=== PATIENT | female | born 1950 | race Caucasian/White ===

== ENCOUNTER 2024-02-21 17:41 | Inpatient (IN) | payer MEDICARE, OTHER ==
[~2024-02-21] VITALS: Ht 154.9 cm; Wt 97.0 kg
[2024-02-21] MEDS ORDERED: Ipratropium/Albuterol SulF 2.5-0.5MG/3 ML Amp INH ONE (17:50)
[2024-02-21 18:06] LABS: BASOPHILS ABSOLUTE AUTO 0.04 K/mm3 (0.00-0.23); BASOPHILS PERCENT AUTO 0 % (0-2); EOSINOPHILS ABSOLUTE AUTO 0.18 K/mm3 (0.00-0.68); EOSINOPHILS PERCENT AUTO 2 % (0-6); Hematocrit 44.1 % (33.0-51.0); Hemoglobin 14.3 g/dL (11.5-16.0); IMMATURE GRAN ABSOLUTE AUTO 0.07 K/mm3 (0.00-0.10); IMMATURE GRAN PERCENT AUTO 1 % (0-1); LYMPHOCYTES ABSOLUTE AUTO 1.75 K/mm3 (0.84-5.20); LYMPHOCYTES PERCENT AUTO 17 % (21-46); MONOCYTES ABSOLUTE AUTO 0.35 K/mm3 (0.16-1.47); MONOCYTES PERCENT AUTO 3 % (4-13); Mean Corpuscular HGB 30.1 pg (26.0-34.0); Mean Corpuscular HGB Conc 32.4 g/dL (31.5-36.5); Mean Corpuscular Volume 93 fL (80-100); Mean Platelet Volume 10.1 fL (9.1-12.4); NEUTROPHILS ABSOLUTE AUTO 8.24 K/mm3 (1.96-9.15); NEUTROPHILS PERCENT AUTO 77 % (41-73); Platelet Count 215 K/mm3 (150-400); RDW Coefficient Variation 15.1 % (11.7-14.2); RDW Standard Deviation 50.8 fL (35.1-46.3); Red Blood Cell Count 4.75 M/mm3 (3.80-5.20); White Blood Cell Count 10.63 K/mm3 (4.00-11.30)
[2024-02-21 18:24] LABS: Albumin, Blood 3.5 g/dL (3.4-5.0); Albumin/Globulin Ratio 0.9 (0.8-1.8); Bilirubin, Total 1.2 mg/dL (0.1-1.0); Bun/Creatinine Ratio 20.7 (12.0-20.0); Calcium, Blood 8.6 mg/dL (8.5-10.1); Creatinine, Blood 1.11 mg/dL (0.40-1.00); Globulin, Blood 3.9 g/dL (2.2-4.0); Total Protein, Blood 7.4 g/dL (6.4-8.2)
[2024-02-21 18:57] LABS: D-Dimer, Quantitative 3.97 mg/L FEU (0.00-0.52)
[2024-02-21] MEDS ORDERED: NS 1,000 ML IV SCH ×2 (19:05→23:35)
[2024-02-21] MEDS ORDERED: DiphenhydrAMINE HCl 50 MG/ML 1ML Vial IV ONE (20:20)
[2024-02-21] MEDS ORDERED: Hydrocortisone Sod Succinate 100 MG Vial IV ONE (20:20)
[2024-02-21] MEDS ORDERED: WIXELA 250-501 EAC1 IH (20:46)
[2024-02-21] MEDS ORDERED: CARVEDILOL6.25 MG PO (20:47)
[2024-02-21] MEDS ORDERED: PROAIR RESPICL90 MCG IH (20:47)
[2024-02-21] MEDS ORDERED: CYCL10 PO (20:47)
[2024-02-21] MEDS ORDERED: Crestor40 MG PO (20:48)
[2024-02-21] MEDS ORDERED: WIXELA 100-501 EAC1 INH (20:48)
[2024-02-21 22:23] LABS: International Normalized Ratio 1.07; Prothrombin Time Results 11.4 Sec (9.7-11.5)
[2024-02-21 22:24] LABS: Anti-Xa UFH, PHA Monitoring <0.10 IU/mL
[2024-02-21] MEDS ORDERED: Dose Adjust by Pharmacy XX STA (22:29)
[2024-02-21] MEDS ORDERED: Heparin Sodium,Porcine/0.5 NS 500 ML IV SCH (22:30)
[2024-02-21] MEDS ORDERED: Heparin Sodium 5000 Units/ML 1ML MDV IV ONE (22:30)
[2024-02-21 23:15] VITALS: BP 165/96
[2024-02-21] MEDS ORDERED: Ondansetron HCl 2 MG / ML 2ML Vial IV PRN (23:35)
[2024-02-22] MEDS ORDERED: Sodium Bicarb 8.4% Inj 75 MEQ in Sodium Chloride 0.45% 1,000 ML IV SCH ×2 (02:50→03:00)
[2024-02-22 03:44] VITALS: BP 135/99
[2024-02-22 05:10] LABS: BASOPHILS ABSOLUTE AUTO 0.01 K/mm3 (0.00-0.23); BASOPHILS PERCENT AUTO 0 % (0-2); EOSINOPHILS PERCENT AUTO 0 % (0-6); Hematocrit 39.6 % (33.0-51.0); Hemoglobin 13.1 g/dL (11.5-16.0); IMMATURE GRAN ABSOLUTE AUTO 0.05 K/mm3 (0.00-0.10); IMMATURE GRAN PERCENT AUTO 1 % (0-1); LYMPHOCYTES ABSOLUTE AUTO 0.97 K/mm3 (0.84-5.20); LYMPHOCYTES PERCENT AUTO 13 % (21-46); MONOCYTES ABSOLUTE AUTO 0.04 K/mm3 (0.16-1.47); MONOCYTES PERCENT AUTO 1 % (4-13); Mean Corpuscular HGB 29.8 pg (26.0-34.0); Mean Corpuscular HGB Conc 33.1 g/dL (31.5-36.5); Mean Corpuscular Volume 90 fL (80-100); Mean Platelet Volume 10.2 fL (9.1-12.4); NEUTROPHILS ABSOLUTE AUTO 6.24 K/mm3 (1.96-9.15); NEUTROPHILS PERCENT AUTO 85 % (41-73); Platelet Count 180 K/mm3 (150-400); RDW Standard Deviation 49.4 fL (35.1-46.3); White Blood Cell Count 7.31 K/mm3 (4.00-11.30)
[2024-02-22 05:38] LABS: Albumin, Blood 3.1 g/dL (3.4-5.0); Albumin/Globulin Ratio 0.9 (0.8-1.8); Bilirubin, Total 1.1 mg/dL (0.1-1.0); Bun/Creatinine Ratio 23.3 (12.0-20.0); Calcium, Blood 8.4 mg/dL (8.5-10.1); Creatinine, Blood 0.94 mg/dL (0.40-1.00); Globulin, Blood 3.5 g/dL (2.2-4.0); Potassium, Blood 4.4 mmol/L (3.5-5.5); Total Protein, Blood 6.6 g/dL (6.4-8.2)
[2024-02-22] MEDS ORDERED: Dose Adjust by Pharmacy XX STA ×2 (05:41→13:31)
--- NOTE | 2024-02-22 05:48 | NUR ---
SHIFT SUMMARY PT A&O X4, ABLE TO MAKE NEEDS KNOWN. VSS, AFEBRILE, SPO2 >90% ON 3L NC, LS WITH MILD WHEEZES IN UPPER LOBES. PT WAS SBA TO HOSPITAL BED FROM ER [facility]. PT REPORTS SOB WITH EXERTION BUT DENIES CP AT THIS TIME. TELE SHOWS ST 100'S-120'S . PT DID HAVE ONE EPISODE OF HR OF 150'S WHILE SLEEPING, HR QUICKLY CAME DOWN WHEN PT AWOKE TO 110'S. HEPARIN GTT AND NS INFUSING PER EMAR. PT UNABLE TO VOID THIS SHIFT, BLADDER SCAN PERFORMED WITH VOLUME OF 495, STRAIGHT CATH DONE, URINALYSIS SENT TO LAB. SHE IS RESTING QUIETLY IN BED, CALL LIGHT WITHIN REACH, BREATHING EVEN AND UNLABORED.
[2024-02-22] MEDS ORDERED: Albuterol HFA200 ACT/6.7 GM INH INH PRN (06:30)
[2024-02-22] MEDS ORDERED: Mometasone/Formoterol MDI 200/5 mcg 13 GM INH SCH (06:30)
[2024-02-22 07:33] VITALS: BP 106/95
[2024-02-22 07:59] LABS: Bicarbonate Venous 20.8 mmol/L (24.0-30.0); PCO2 Venous 30.8 mmHg (38-42); pH Blood Venous 7.41 (7.34-7.37)
[2024-02-22 08:00] LABS: Base Excess Venous -5.1 mmol/L
[2024-02-22] MEDS ORDERED: Carvedilol 6.25 MG Tab PO SCH (09:00)
[2024-02-22 11:36] VITALS: BP 127/77
[2024-02-22] MEDS ORDERED: Acetaminophen 325 MG TABLET PO PRN (13:50)
[2024-02-22 15:38] VITALS: BP 121/75
--- NOTE | 2024-02-22 17:23 | NUR ---
SHIFT SUMMARY; ASSUMED CARE AT 0700.A/A/OX4 DURING SHIFT, PLEASANT WITH CARE. HEPARIN GTT INFUSING, 5L 02 VIA NC. VISIBLY SOB WITH EXERTION, BUT RECOVERS WITHIN MINUTES. SATS 88-94%. SINUS TACH UP TO 120 WITH EXERTION. ENCOURAGED UP TO CHAIR FOR MEALS, DENIED ALL EXCEPT LUNCH TIME MEAL. ECHO COMPLETED TODAY, WILL CONTINUE TO MONITOR AND TREAT UNTIL CHANGE OF SHIFT.
[2024-02-22 18:00] LABS: Source, Urine Clean Catch
[2024-02-22 18:03] LABS: Appearance, Urine Clear (Clear); Bilirubin, Urine Neg (Neg); Blood, Urine Neg (Neg); Color, Urine Yellow (P-Yellow); Glucose Qualitative, Urine Neg (Neg); Ketones, Urine Neg (Neg); Leukocyte Esterase, Urine 1+ (Neg); Nitrite, Urine Pos (Neg); Protein, Urine 2+ (Neg); Urobilinogen, Urine NORM (Normal)
[2024-02-22 18:09] LABS: Bacteria Many /hpf; Calcium Oxalate Crystals Rare /hpf; Red Blood Cells, Urine 0-2 /hpf (0-2); Squamous Epithelial Cells Few /hpf (Few)
[2024-02-22 18:10] LABS: Hyaline Casts 0-2 /lpf (0-2)
[2024-02-22 19:23] VITALS: BP 125/74
[2024-02-22 23:21] VITALS: BP 134/88
[2024-02-23 03:36] VITALS: BP 114/79
[2024-02-23 03:48] LABS: BASOPHILS ABSOLUTE AUTO 0.02 K/mm3 (0.00-0.23); BASOPHILS PERCENT AUTO 0 % (0-2); EOSINOPHILS ABSOLUTE AUTO 0.02 K/mm3 (0.00-0.68); EOSINOPHILS PERCENT AUTO 0 % (0-6); Hematocrit 36.8 % (33.0-51.0); Hemoglobin 11.6 g/dL (11.5-16.0); IMMATURE GRAN ABSOLUTE AUTO 0.08 K/mm3 (0.00-0.10); IMMATURE GRAN PERCENT AUTO 1 % (0-1); LYMPHOCYTES ABSOLUTE AUTO 1.83 K/mm3 (0.84-5.20); LYMPHOCYTES PERCENT AUTO 20 % (21-46); MONOCYTES ABSOLUTE AUTO 0.46 K/mm3 (0.16-1.47); MONOCYTES PERCENT AUTO 5 % (4-13); Mean Corpuscular HGB 29.6 pg (26.0-34.0); Mean Corpuscular HGB Conc 31.5 g/dL (31.5-36.5); Mean Corpuscular Volume 94 fL (80-100); Mean Platelet Volume 10.2 fL (9.1-12.4); NEUTROPHILS ABSOLUTE AUTO 6.88 K/mm3 (1.96-9.15); NEUTROPHILS PERCENT AUTO 74 % (41-73); Platelet Count 181 K/mm3 (150-400); RDW Coefficient Variation 15.4 % (11.7-14.2); RDW Standard Deviation 52.2 fL (35.1-46.3); Red Blood Cell Count 3.92 M/mm3 (3.80-5.20); White Blood Cell Count 9.29 K/mm3 (4.00-11.30)
[2024-02-23 04:08] LABS: Albumin, Blood 2.8 g/dL (3.4-5.0); Albumin/Globulin Ratio 0.8 (0.8-1.8); Bilirubin, Total 0.6 mg/dL (0.1-1.0); Bun/Creatinine Ratio 28.5 (12.0-20.0); Calcium, Blood 8.4 mg/dL (8.5-10.1); Creatinine, Blood 1.3 mg/dL (0.40-1.00); Globulin, Blood 3.3 g/dL (2.2-4.0); Potassium, Blood 4.7 mmol/L (3.5-5.5); Total Protein, Blood 6.1 g/dL (6.4-8.2)
[2024-02-23] MEDS ORDERED: Clarify Drug Order XX ONE (04:15)
--- NOTE | 2024-02-23 05:45 | NUR ---
SHIFT SUMMARY PT A&O X4, ABLE TO MAKE NEEDS KNOWN. VSS, AFEBRILE, SPO2 >90% ON 2-6L NC, LUNGS CTA BILATERALLY. PT REPORTS SOB WITH EXERTION, SHE DENIES CP AT THIS TIME. TELE SHOWS SR/ ST. HEPARIN GTT INFUSING PER EMAR. PT UP TO BSC TO VOID THIS SHIFT. SHE IS NOW RESTING QUIETLY IN BED, CALL LIGHT WITHIN REACH, BREATHING EVEN AND UNLABORED.
[2024-02-23 07:50] VITALS: BP 101/55
[2024-02-23 08:21] VITALS: BP 109/67
[2024-02-23 12:00] VITALS: BP 113/74
[2024-02-23 17:14] VITALS: BP 133/68
--- NOTE | 2024-02-23 17:42 | NUR ---
PATIENT IS ALERT AND ORIENTED AND COOPERATIVE WITH CARE. ON 1L O2 VIA NC WITH AND O2 SATURATION OF 94%. UP TO THE CHAIR FOR MEALS. UP TO THE BSC. VOIDED ONCE THIS SHIFT, DENIED THE NEED TO VOID ANY MORE THAN THAT. FAMILY VISITED THIS AFTERNOON. C/O BACK PAIN. HEPARIN DRIP RUNNING PER EMAR. NO C/O CP OR SOB. WILL CONTINUE TO MONITOR
[2024-02-23 19:47] VITALS: BP 114/84
[2024-02-23 22:46] LABS: B2GLYCOPROTEIN 1, IGG ANTIBODY <10 SGU (<=20); B2GLYCOPROTEIN 1, IGM ANTIBODY <10 SMU (<=20)
[2024-02-24 00:34] VITALS: BP 105/75
[2024-02-24 03:57] LABS: Hematocrit 38.4 % (33.0-51.0); Hemoglobin 12.3 g/dL (11.5-16.0); Mean Platelet Volume 10.5 fL (9.1-12.4); Platelet Count 198 K/mm3 (150-400)
[2024-02-24 04:06] VITALS: BP 113/69
--- NOTE | 2024-02-24 04:28 | NUR ---
SHIFT SUMMARY. SHIFT HAS BEEN UNREMARKABLE. PT AOX4, PLEASANT, COOPERATIVE WITH CARE, CALLS APPROPRIATELY, ABLE TO MAKE NEEDS KNOWN. PT HAS SLEPT SPORADICALLY THROUGHOUT SHIFT. STEADY SBA TO BEDSIDE COMMODE. HEPARIN GTT RUNNING THROUGHOUT SHIFT. VITALS STABLE. TELE ON THROUGHOUT SHIFT, NO ACUTE CHANGES OR EVENTS. MINIMAL PAIN REPORTED EARLY IN SHIFT, WELL MANAGED VIA EMAR. HAS MAINTAINED ADEQUATE SATURATION OVERNIGHT ON 1 L O2 VIA NC. BED LOCKED IN LOWEST POSITION. CALL LIGHT LEFT WITHIN REACH. CONTINUING TO MONITOR.
[2024-02-24] MEDS ORDERED: Clarify Drug Order XX ONE (04:35)
[2024-02-24 06:21] LABS: CARDIOLIPIN ANTIBODY IGG <10 GPL (<=14); CARDIOLIPIN ANTIBODY IGM 15 MPL (<=12)
[2024-02-24 06:32] LABS: HOMOCYSTEINE, TOTAL 13 umol/L (0-15)
[2024-02-24 07:57] VITALS: BP 118/55
[2024-02-24 08:00] LABS: Albumin/Globulin Ratio 0.9 (0.8-1.8); Bilirubin, Total 0.5 mg/dL (0.1-1.0); Bun/Creatinine Ratio 24.3 (12.0-20.0); Calcium, Blood 8.5 mg/dL (8.5-10.1); Creatinine, Blood 1.36 mg/dL (0.40-1.00); Globulin, Blood 3.3 g/dL (2.2-4.0); Magnesium, Blood 2.2 mg/dL (1.6-2.4); Phosphorus, Blood 3.8 mg/dL (2.5-4.9); Potassium, Blood 4.6 mmol/L (3.5-5.5); Total Protein, Blood 6.3 g/dL (6.4-8.2)
[2024-02-24 08:13] LABS: BASOPHILS ABSOLUTE AUTO 0.03 K/mm3 (0.00-0.23); BASOPHILS PERCENT AUTO 0 % (0-2); EOSINOPHILS ABSOLUTE AUTO 0.13 K/mm3 (0.00-0.68); EOSINOPHILS PERCENT AUTO 2 % (0-6); IMMATURE GRAN ABSOLUTE AUTO 0.07 K/mm3 (0.00-0.10); IMMATURE GRAN PERCENT AUTO 1 % (0-1); LYMPHOCYTES ABSOLUTE AUTO 2.41 K/mm3 (0.84-5.20); LYMPHOCYTES PERCENT AUTO 32 % (21-46); MONOCYTES ABSOLUTE AUTO 0.42 K/mm3 (0.16-1.47); MONOCYTES PERCENT AUTO 6 % (4-13); Mean Corpuscular HGB 29.8 pg (26.0-34.0); Mean Corpuscular HGB Conc 31.6 g/dL (31.5-36.5); Mean Corpuscular Volume 94 fL (80-100); NEUTROPHILS ABSOLUTE AUTO 4.43 K/mm3 (1.96-9.15); NEUTROPHILS PERCENT AUTO 59 % (41-73); RDW Coefficient Variation 15.5 % (11.7-14.2); RDW Standard Deviation 53.1 fL (35.1-46.3); Red Blood Cell Count 4.09 M/mm3 (3.80-5.20); White Blood Cell Count 7.49 K/mm3 (4.00-11.30)
[2024-02-24] MEDS ORDERED: Apixaban 5 MG Tab PO SCH (09:00)
[2024-02-24] MEDS ORDERED: Carvedilol 3.125 MG Tab PO SCH (09:00)
--- NOTE | 2024-02-24 13:24 | NUR ---
PT TRANSITIONED TO MEDICAL STATUS NO TELE, PT WAS STARTED ON ELIQUIS, HEP GTT STOPPED AN HOUR AFTER FIRST DOSE OF ELIQUIS. PT REMAINED ON 1L OF 02 AT REST NEEDING UP TO 4L WHEN GETTING UP AND MOVING AROUND, PT REQUESTED TO GET IN THE SHOWER, WAS SHORT OF BREATH UPON GETTING BACK TO THE CHAIR. NO OTHER ISSUES ENCOUTNERED PT DENIES CHEST PAIN/PALPITATIONS, NO NAUSEA/DIZZINESS. PT DOESNT HAVE ANY COMPLAINS URINATING, HAS ADEQUATE AMOUNT OF URINE OUT. VITALS STABLE. PT HAS BEEN CALLING APPROPRIATELY. WILL CONTINUE TO MONITOR
[2024-02-24 15:44] LABS: ANTI-XA QUALITATIVE INTERP Present (Not Present); ANTICOAG MEDICATION NEUTRALIZ Hepzyme (Not Performed); DRVVT 1:1 MIX RATIO 1.32 (<=1.20); DRVVT CONFIRMATION RATIO 0.95 (<=1.20); DRVVT SCREEN RATIO 1.94 (<=1.20); HEXAGONAL PHOSPHOLIPID CONFIRM 16.4 s (<=7.9); NEUTRALIZED DRVVT SCREEN RATIO 1.68 (<=1.20); NEUTRALIZED PTT-LA RATIO 1.45 (<=1.20); PTT-LA RATIO >4.00 (<=1.20); THROMBIN TIME (TT) >150.0 s (<=19.5)
[2024-02-24 16:23] VITALS: BP 120/66
--- NOTE | 2024-02-24 17:25 | NUR ---
PT TRANSFERRED TO 332 REPORT GIVEN TO RUSS GILMORE ALL BELONGIGNS SENT WITH THE PT, ACCOMPANIED VIA WHEELCHAIR
--- NOTE | 2024-02-24 18:01 | NUR ---
SHIFT SUMMARY/TRANSFER NOTE PATIENT TRANSFERRED TO ROOM 332 AT 1700. PATIENT TRANSFERED TO THE COMMODE 1 PERSON ASSIST. DENIES PAIN AT THIS TIME. COMPLAINING OF SOB WITH AMBULATION AND TRANSFERRING. A/OX4, CALL LIGHT WITHIN REACH. PATIENT ON 1LPM OXYGEN VIA NASAL CANNULA. NO CONCERNS AT THIS TIME.
[2024-02-24 18:53] LABS: PROTEIN S AG FREE 137 % (55-123)
[2024-02-24 19:26] VITALS: BP 112/60
[2024-02-24 20:15] LABS: ANTITHROMBIN, ENZYM (ACTIVITY) 103 % (76-128)
[2024-02-24 20:43] LABS: PROTEIN C FUNCTIONAL 157 % (83-168)
[2024-02-24 22:55] LABS: APC RESISTANCE 3.77 (>=2.00); FACTOR V LEIDEN BY PCR Not Done; FACV REF SPECIMEN Not Done
[2024-02-25 01:59] VITALS: BP 137/79
--- NOTE | 2024-02-25 04:54 | NUR ---
SALES UTILITY REPRESENTATIVE SUMMARY PT A/OX4. PLEASANT AND COOPERATIVE. PT C/O LOW BACK PAIN. MED WITH TYLENOL. RESPIRATORY THERAPY AT BEDSIDE FOR BREATHING TX. PT PRESENTING WITH EXPIRATORY WHEEZING T/O. O2 SAT 88-89% ON 1LITER. RT INCREASED O2 TO 3L NASAL CANULA. PT IS ABLE TO MAKE NEEDS KNOWN AND CALLS APPROPRIATELY. CALL LIGHT ACCESSIBLE.
[2024-02-25 07:28] VITALS: BP 134/70
[2024-02-25 08:11] LABS: Anion Gap 10 mmol/L (3-11); Blood Urea Nitrogen 27 mg/dL (8-24); Bun/Creatinine Ratio 23.1 (12.0-20.0); CO2, Blood 25 mmol/L (21-32); Calcium, Blood 8.5 mg/dL (8.5-10.1); Chloride, Blood 110 mmol/L (98-108); Creatinine, Blood 1.17 mg/dL (0.40-1.00); Glomerular Filtration Rate 49 (60-); Glucose, Blood 107 mg/dL (70-99); Phosphorus, Blood 4.2 mg/dL (2.5-4.9); Potassium, Blood 4.4 mmol/L (3.5-5.5); Sodium, Blood 141 mmol/L (136-145)
[2024-02-25 08:21] LABS: Albumin/Globulin Ratio 0.9 (0.8-1.8); Bilirubin, Total 0.7 mg/dL (0.1-1.0); Bun/Creatinine Ratio 23.1 (12.0-20.0); Calcium, Blood 8.5 mg/dL (8.5-10.1); Creatinine, Blood 1.17 mg/dL (0.40-1.00); Globulin, Blood 3.2 g/dL (2.2-4.0); Potassium, Blood 4.4 mmol/L (3.5-5.5); Total Protein, Blood 6.2 g/dL (6.4-8.2)
[2024-02-25] MEDS ORDERED: ACET325 PO (12:29)
[2024-02-25] MEDS ORDERED: BREO ELLIPTA 11 EAC1 (12:29)
[2024-02-25] MEDS ORDERED: ELIQUIS5 M2 PO (12:30)
--- NOTE | 2024-02-25 13:38 | NUR ---
DISCHARGE SUMMARY DISCHARGE PACKET GIVEN AND REVIEWED, VERBALIZED UNDERSTANDING. MEDS FAXED TO [facility]. WAITING FOR [facility] TO DELIVER O2 AND WALKER. AND SON IN ROOM AT THIS TIME.
[2024-02-26 15:16] LABS: PROTHROMBIN F2 G20210A VARIANT Negative; PT PCR SPECIMEN Whole Blood
== END 2024-02-25 14:02 | disposition home health service (06) | DRG 175 ==
LOC: ER 17:41 → EDBD 17:41 → PCU 17:42 → MEDS 02-24 17:06
PROVIDERS: Emergency Medicine; Family Medicine; Internal Medicine; Physician Assistant; ADMIT Internal Medicine
DX: I26.92 Saddle embolus of pulmonary artery without acute cor pulmonale (principal); J96.01 Acute respiratory failure with hypoxia; R65.11 Systemic inflammatory response syndrome (SIRS) of non-infectious origin with acute organ dysfunction; I31.39 Other pericardial effusion (noninflammatory); N17.9 Acute kidney failure, unspecified; E87.21 Acute metabolic acidosis; E87.3 Alkalosis; J44.9 Chronic obstructive pulmonary disease, unspecified; F17.210 Nicotine dependence, cigarettes, uncomplicated; R33.9 Retention of urine, unspecified; I27.20 Pulmonary hypertension, unspecified; R82.71 Bacteriuria; E78.5 Hyperlipidemia, unspecified; Z90.710 Acquired absence of both cervix and uterus; Z90.13 Acquired absence of bilateral breasts and nipples; Z79.51 Long term (current) use of inhaled steroids; Z79.899 Other long term (current) drug therapy; Z88.8 Allergy status to other drugs, medicaments and biological substances; Z91.041 Radiographic dye allergy status
CPT/HCPCS: 36415; 71046; 71260; 76770; 80053; 80069; 81001; 81240; 82803; 83090; 83605; 83735; 83880; 84100; 84145; 84484; 85025; 85300; 85303; 85306; 85307; 85379; 85520; 85525; 85610; 85613; 85670; 85730; 86146; 86147; 87040; 87077; 87086; 87186; 93005; 93010; 93306; 93970; 94640; 94664; 94760; 94761; 94762; 96361; 96365-59; 96375-59; 97110; 97116; 97162; 97530; 99285-25; A9270; G0378; J1200; J1644; J1720; J7030; Q9967

== ENCOUNTER 2024-10-17 05:23 | Inpatient (IN) | payer MEDICARE ==
[2024-10-17] VITALS (29 sets, daily range): BP systolic 103–156; BP diastolic 65–105
[~2024-10-17] VITALS: Ht 160 cm; Wt 93.5 kg
[~2024-10-17 05:23] MED LIST: ACET325 PO; BREO ELLIPTA 11 EAC1 INH; CARVEDILOL6.25 MG PO; CYCL10 PO; Crestor40 MG PO; ELIQUIS5 M2 PO; PROAIR RESPICL90 MCG IH; WIXELA 100-501 EAC1 INH; WIXELA 250-501 EAC1 IH
[2024-10-17 05:40] LABS: BASOPHILS ABSOLUTE AUTO 0.06 K/mm3 (0.00-0.23); BASOPHILS PERCENT AUTO 1 % (0-2); EOSINOPHILS ABSOLUTE AUTO 0.18 K/mm3 (0.00-0.68); EOSINOPHILS PERCENT AUTO 2 % (0-6); Hematocrit 44.5 % (33.0-51.0); Hemoglobin 14.2 g/dL (11.5-16.0); IMMATURE GRAN ABSOLUTE AUTO 0.06 K/mm3 (0.00-0.10); IMMATURE GRAN PERCENT AUTO 1 % (0-1); LYMPHOCYTES ABSOLUTE AUTO 2.97 K/mm3 (0.84-5.20); LYMPHOCYTES PERCENT AUTO 33 % (21-46); MONOCYTES ABSOLUTE AUTO 0.56 K/mm3 (0.16-1.47); MONOCYTES PERCENT AUTO 6 % (4-13); Mean Corpuscular HGB 28.9 pg (26.0-34.0); Mean Corpuscular HGB Conc 31.9 g/dL (31.5-36.5); Mean Corpuscular Volume 91 fL (80-100); Mean Platelet Volume 10.3 fL (9.1-12.4); NEUTROPHILS ABSOLUTE AUTO 5.15 K/mm3 (1.96-9.15); NEUTROPHILS PERCENT AUTO 57 % (41-73); Platelet Count 221 K/mm3 (150-400); RDW Coefficient Variation 15.6 % (11.7-14.2); RDW Standard Deviation 51.8 fL (35.1-46.3); Red Blood Cell Count 4.91 M/mm3 (3.80-5.20); White Blood Cell Count 8.98 K/mm3 (4.00-11.30)
[2024-10-17 05:48] LABS: PCO2 Arterial 31.2 mmHg (35-45); PO2 Arterial 57.4 mmHg (80-100); pH Blood Arterial 7.35 (7.35-7.45)
[2024-10-17 06:01] LABS: Albumin, Blood 3.7 g/dL (3.4-5.0); Bilirubin, Total 0.7 mg/dL (0.1-1.0); Bun/Creatinine Ratio 20.9 (12.0-20.0); Creatinine, Blood 1.82 mg/dL (0.40-1.00); Globulin, Blood 3.8 g/dL (2.2-4.0); Total Protein, Blood 7.5 g/dL (6.4-8.2)
[2024-10-17] MEDS ORDERED: EPINEPHrine HCL 11.25 MG/0.5 ML VIAL ONE (06:24)
[2024-10-17] MEDS ORDERED: Albuterol 2.5 MG/3 ML VIAL ONE (06:24)
[2024-10-17] MEDS ORDERED: Albuterol 2.5 MG/3 ML VIAL INH ONE (06:35)
[2024-10-17] MEDS ORDERED: CefTRIAXone Sodium 2,000 MG in NS 100 ML IV ONE (06:40)
[2024-10-17] MEDS ORDERED: NS 1,000 ML IV SCH (06:40)
[2024-10-17] MEDS ORDERED: Acetaminophen 500 MG Tab PO PRN (07:50)
[2024-10-17] MEDS ORDERED: FLU VACC TS2024-25(6MOS UP)/PF 45 MCG/0.5 ML SYRINGE IM SCH (07:55)
[2024-10-17] MEDS ORDERED: Polyethylene Glycol 3350 17 gm PO PRN (07:55)
[2024-10-17] MEDS ORDERED: MethylPREDNISolone Sod Succ 125 MG Vial IV SCH (08:00)
[2024-10-17] MEDS ORDERED: Aspirin 325 MG Tab PO ONE ×2 (08:00→11:55)
[2024-10-17] MEDS ORDERED: Lactobacil 2-S.Thermo-Bifido 1 1 Cap PO SCH (09:00)
[2024-10-17] MEDS ORDERED: SOAANZ20 M1 PO (10:20)
[2024-10-17] MEDS ORDERED: BACLOFEN5 M1 PO (10:21)
[2024-10-17] MEDS ORDERED: POTCHL20ER PO (10:22)
[2024-10-17] MEDS ORDERED: Baclofen 10 MG Tab PO PRN (10:50)
[2024-10-17] MEDS ORDERED: Mometasone/Formoterol MDI 100/5 mcg 13 GM INH SCH (11:00)
[2024-10-17 12:04] LABS: Magnesium, Blood 2.3 mg/dL (1.6-2.4); Phosphorus, Blood 4.3 mg/dL (2.5-4.9)
[2024-10-17] MEDS ORDERED: Aspirin 81 MG Chew PO ONE (12:05)
[2024-10-17] MEDS ORDERED: LORazepam 0.5 MG Tab PO PRN (12:25)
--- NOTE | 2024-10-17 13:19 | NUR ---
Given ativan p.o. for anxiety.
--- NOTE | 2024-10-17 13:34 | NUR ---
UPDATE & MD NOTIFED: PATIENT CAME TO UNIT AND WAS SETTLED IN WITH FAMILY AT BEDSIDE. MD WAS NOTIFIED FOR THE ONE TIME ASPIRIN DOSE THAT WAS NOT GIVEN IN THE EMERGENCY ROOM FOR A ONE TIME ORDER TO BE GIVEN. MD ORDERED ATIVAN FOR ANXIETY, WAS NOTIFED OF THE CRITCAL TROPONIN & LACTIC THAT CAME BACK. MD AWARE AND STATED HE WILL TREND TROPONIN. MD ALSO NOTIFIED THAT PATIENT STATED "I TAKE 100 OF BENADRYL EVERY DAY 50 IN THE MORNING & 50 AT NIGHT". MD AWARE AND NO ORDERS TO BE ADDED AT THIS TIME. PATIENT WAS PLACED ON THE BIPAP DUE TO SHOUTING OUT "THAT SHE COUDLN'T BREATH". IS CURRENTLY ON THE BIPAP AND TOLERATING IT WELL. HAS CALL LIGHT WITHIN REACH & BED IN LOWEST POSITION.
--- NOTE | 2024-10-17 15:49 | NUR ---
Pt. is awake and welcomes my visit. Pt. is unsettled about her breathing and verbalized "I'm sorry I have Heeby Juan José's." Facilitated a short life review and considered matters of wong and family. Pt. displayed increased distress so this electric screw driver operator cut the visit short. Prayed with the Pt. Pt. verbalized gratitude for the spiritual care visit and welcomed this electric screw driver operator to return.
[2024-10-17] MEDS ORDERED: Rocuronium Bromide 10 MG/ML 5ML Injection IV ONE (16:11)
[2024-10-17] MEDS ORDERED: Etomidate 2MG / ML 10ML Vial IV ONE (16:31)
--- NOTE | 2024-10-17 17:15 | NUR ---
TRANSFER NOTE: PRINCIPLE INDUSTRIAL HYGIENIST HAD LEFT THE ROOM AND THIS RN WAS SITTING OUTSIDE THE ROOM AND PRINCIPLE INDUSTRIAL HYGIENIST LEFT THE ROOM DUE TO HIM STATING "I'M GONNA GO AND LET YORU HEART CALM DOWN". ONCE HE HAD LEFT THIS RN ENTERED THE ROOM PATIENT WAS ALSON STATING "HELP ME, I FEEL LIKE I CAN'T BREAHT" THIS RN INCREASED PATIENTS OXYGEN ON NASAL CANNULA TO 10LITERS. PATIENT CONTINUED TO STATE THAT "SHE COULDN'T BREATH", THIS RN PLACED THE PATIENT ON BIPAP AND HYPEROXYGENATED PATIENT. PATIENT WAS RAPID BREATHING WITH SHALLOW BREATHS AT 26 A MINUTE. THIS RN CALLED CHARGE TO COME INTO ROOM AND PATIENT WAS SATTING AT 79% ON BIPAP AT 100 FIO2. PATIENT CONTINUED TO DEORIATE, RAPID BREATHING, BLUE LIPS & MOTTLING. A RAPID RESPONSE WAS CALLED AND MORE HANDS CAME INTO THE ROOM. MD UMANA & PATRICA AT BEDSIDE. PATIENT CONTINUED TO BE ON BIPAP WHILE BEING GIVEN ATIVAN & MORPHINE TO CALM WORK OF BREATHING. PATIENT CONTINUED TO SAT IN THE 70-80'S AND CONTINUE TO HAVE RAPID, SHALLOW BREATHING, BLUISH TING & MOTTLING. VBG WAS DRAWN, LABS REVIEWED, & DECISION TO INTUBATE WAS DRAWN BY JAILYN. PATIENT WAS INTUBATED AT BEDSIDE WITH MD UMANA PREFORMING INTUBATION. PATIENT WAS THEN TRANSFFERED TO ICU 11 AND BEDSIDE SHIFT REPORT WAS GIVEN TO RECEIVING RN. FAMILY WAS NOTIFIED DURING THE RAPID RESPONSE.
[2024-10-17] MEDS ORDERED: LORazepam 2 MG/ML 1ML Injection ONE (17:42)
[2024-10-17] MEDS ORDERED: LORazepam 2 MG/ML 1ML Injection IV STA (17:48)
[2024-10-17] MEDS ORDERED: Morphine Sulfate 4 MG/1 ML Injection ONE (17:48)
[2024-10-17] MEDS ORDERED: Morphine Sulfate 4 MG/1 ML Injection IV STA (17:54)
[2024-10-17] MEDS ORDERED: NS 1,000 ML IV ONE ×2 (18:01→18:10)
--- NOTE | 2024-10-17 18:01 | NUR ---
MD CONTACTED AND NOTIFIED OF RAPID RESPONSE. PT DAUGHTER CONTACTED AND NOTIFIED OF RAPID RESPONSE.
[2024-10-17] MEDS ORDERED: Etomidate 2MG / ML 10ML Vial IV STA (18:06)
[2024-10-17 18:10] LABS: Bicarbonate Venous 12.9 mmol/L (24.0-30.0); PCO2 Venous 49.9 mmHg (38-42)
[2024-10-17 18:12] LABS: pH Blood Venous 7.09 (7.34-7.37)
[2024-10-17] MEDS ORDERED: Ipratropium/Albuterol SulF 2.5-0.5MG/3 ML Amp INH PRN ×2 (18:20→18:45)
[2024-10-17] MEDS ORDERED: propofoL 100 ML IV SCH (18:25)
--- NOTE | 2024-10-17 18:39 | NUR ---
"Spiritual Care Support | Rapid Response A Rapid Response was called less than 10 minutes after this expander's previous visit. Assistted staff with communication. Collaborated with staff as family support is given. Pt. is moved to ICU. Family are being supported by Palliative Care Nurse Deanne."
[2024-10-17] MEDS ORDERED: Acetaminophen 650 MG Supp PR PRN (18:45)
--- NOTE | 2024-10-17 18:50 | NUR ---
PT TRANSFERED FROM PCU 7 TO ICU 11 AFTER RAPID RESPONSE. PT WAS INTUBATED WHILE IN PCU. VENT SETTINGS AC 18, 350, 5, 70%. OG PLACED BEFORE CXR, AWAITING READ. PROPOFOL STARTED. PT IS NOT RESPONDING TO STIMULI YET, PT DID ETOMIDATE AND ROCURONIUM BEFORE INTUBATION. FAMILY AT BEDSIDE, PALLIATIVE CARE RN WITH THEM AND ANSWERING QUESTIONS. WILL REPORT TO ONCOMING RN.
--- NOTE | 2024-10-17 18:56 | NUR ---
INITIAL PALLIATIVE CARE VISIT: RAPID RESPONSE CALLED ON PT. ATTENDED RAPID RESPONSE AND PROVIDED STANDBY ASSIST. WHEN FAMILY ARRIVED PROVIDED MORAL/EMOTIONAL SUPPORT AND EDUCATION NEEDED. DR. UMANA EDUCATED FAMILY ON PT BEING PLACED ON VENTILATOR. WAITED WITH FAMILY WHILE PT GOT TRANSFERRED TO ICU 11 AND ONCE READY FAMILY TAKEN TO PT ROOM. PT APPEARED PEACEFUL ON ARRIVAL TO ROOM AND ON VENTILATOR. DISCUSSED WHAT TO EXPECT WITH THE FAMILY. DISCUSSED WITH FAMILY IF THEY HAD EVER HAD A CONVERSATION TOGETHER ABOUT WHAT THEY WOULD WANT IF THEY NEEDED LIFE SUPPORT. SPOUSE STATED THEY HAD NEVER TALKED ABOUT THOSE THINGS. DISCUSSED CURRENT CODE STATUS. INFORMED FAMILY PT DID NOT REQUIRE ANY CPR BECAUSE THEY WERE ABLE TO INTUBATE PRIOR TO HER HEART STOPPING. REQUESTED THEY CONSIDER WHAT THERE MOM WOULD WANT IF HER HEART DOES STOP. PER SPOUSE, HE WANTS HIS TO HAVE CPR IF NEEDED. DISCUSSED RISKS OF CPR AND FAMILY VU. ADVISED FAMILY TO TAKE PT PURSE HOME FOR NOW. BELONGINGS WITH DAUGHTER. UPDATED PRIMARY RN ON FAMILY WISHES FOR CPR IF NEEDED.
--- NOTE | 2024-10-17 19:17 | NUR ---
ASSESSMENT/ASSUMED CARE PT INTUBATED AND ON [facility] VENT. FAMILY AT BEDSIDE. BILAT WRIST RESTRAINT ON. LUNGS CLEAR BUT DECREASED IN THE BASES. VENT SETTINGS AC/VC 18/350/5/70%. ORAL CARE DONE. HEART RATE TACHY. BP STABLE. 1+ EDEMA TO BILAT LOWER EXT. BILAT FEET RED. BT+ HYPOACTIVE. OG CLAMPED. ABD SOFT AND NONTENDER. PT PULLS AWAY TO PAINFUL STIMULI. NOT FOLLOWING INSTRUCTIONS. WILL PLACE MCKEON CATH. IV 20G LEFT FOREARM WITH PROPOFOL AT 20 MCQ/KG/MIN. SITE CLEAR. IV 20G TO RIGHT WRIST WITH NS AT 10 ML/HR.
[2024-10-17 19:18] LABS: International Normalized Ratio 1.32; Prothrombin Time Results 13.8 Sec (9.7-11.5)
--- NOTE | 2024-10-17 19:30 | NUR ---
MCKEON CATH PLACED A 16 FR MCKEON TEMP CATH. CLOUDY YELLOW URINE NOTED. ANSWERED QUESTIONS FROM FAMILY
[2024-10-17 19:52] LABS: Albumin, Blood 3.1 g/dL (3.4-5.0); Anion Gap 13 mmol/L (3-11); Blood Urea Nitrogen 34 mg/dL (8-24); Bun/Creatinine Ratio 22.5 (12.0-20.0); CO2, Blood 19 mmol/L (21-32); Calcium, Blood 8.3 mg/dL (8.5-10.1); Chloride, Blood 109 mmol/L (98-108); Creatinine, Blood 1.51 mg/dL (0.40-1.00); Glomerular Filtration Rate 36 (60-); Glucose, Blood 240 mg/dL (70-99); Phosphorus, Blood 5.5 mg/dL (2.5-4.9); Potassium, Blood 4.4 mmol/L (3.5-5.5); Sodium, Blood 137 mmol/L (136-145)
[2024-10-17] MEDS ORDERED: Heparin Sodium,Porcine/0.5 NS 500 ML IV SCH (19:55)
[2024-10-17] MEDS ORDERED: Apixaban 5 MG Tab PO SCH (21:00)
[2024-10-17] MEDS ORDERED: Docusate Sodium/Senna 1 Tab PO SCH (21:00)
[2024-10-18] VITALS (62 sets, daily range): BP systolic 91–152; BP diastolic 64–83
[2024-10-18] MEDS ORDERED: Hydrogen Peroxide 1.5 % Solution MT SCH
[2024-10-18 02:18] LABS: Base Excess Venous -6.7 mmol/L; Bicarbonate Venous 19.8 mmol/L (24.0-30.0); PCO2 Venous 30.7 mmHg (38-42); pH Blood Venous 7.39 (7.34-7.37)
[2024-10-18 02:18] LABS: Hematocrit 39.9 % (33.0-51.0); Hemoglobin 12.3 g/dL (11.5-16.0); Mean Corpuscular HGB 28.8 pg (26.0-34.0); Mean Corpuscular HGB Conc 30.8 g/dL (31.5-36.5); Mean Corpuscular Volume 93 fL (80-100); Mean Platelet Volume 10.4 fL (9.1-12.4); Platelet Count 161 K/mm3 (150-400); RDW Coefficient Variation 15.6 % (11.7-14.2); RDW Standard Deviation 53.1 fL (35.1-46.3); Red Blood Cell Count 4.27 M/mm3 (3.80-5.20); White Blood Cell Count 7.08 K/mm3 (4.00-11.30)
[2024-10-18] MEDS ORDERED: Dose Adjust by Pharmacy XX STA ×2 (03:04→11:55)
[2024-10-18 04:29] LABS: Anion Gap 13 mmol/L (3-11); Blood Urea Nitrogen 34 mg/dL (8-24); Bun/Creatinine Ratio 23.3 (12.0-20.0); CO2, Blood 20 mmol/L (21-32); Calcium, Blood 8.5 mg/dL (8.5-10.1); Chloride, Blood 110 mmol/L (98-108); Creatinine, Blood 1.46 mg/dL (0.40-1.00); Glomerular Filtration Rate 38 (60-); Glucose, Blood 168 mg/dL (70-99); Magnesium, Blood 2.2 mg/dL (1.6-2.4); Phosphorus, Blood 4.5 mg/dL (2.5-4.9); Potassium, Blood 4.7 mmol/L (3.5-5.5); Sodium, Blood 138 mmol/L (136-145)
--- NOTE | 2024-10-18 06:06 | NUR ---
SHIFT SUMMARY PT CONT INTUBATED AND ON [facility] VENT. VENT SETTINGS AC/VC 18/350/5/60%. LUNGS REMAIN CLEAR BUT DECREASED IN THE BASES. SUCTIONED COUPIOUS AMT THICK HASTINGS SPUTUM VIA ET TUBE. HEART RATE DOWN FROM 130'S TO 90'S. BP STABLE. TRACE TO 1+ PEDAL EDEMA. BT+ HYPOACTIVE. OG CLAMPED. MCKEON CATH PLACED. CLOUDY YELLOW URINE DRAINING. PROPOFOL CURRENTLY AT 25 MCQ/KG/MIN. HEPARIN STOPPED FOR AN HOUR AND RESTARTED AT 0400 AT THE DECREASED RATE OF 15 UNITS/KG/HR. BILAT SOFT WRIST RESTRAINTS ON. PT TURNED Q2HRS. TEMP DOWN FROM 99.2 TO 97.1. PT NOT FOLLOWING INSTRUCTIONS. REPORT TO ON COMING NURSE. CONT TO MONITOR
[2024-10-18] MEDS ORDERED: Cetylpyridinium Chloride 1 EA MISC MT SCH (08:00)
[2024-10-18] MEDS ORDERED: Torsemide 20 MG TAB PO SCH (09:00)
[2024-10-18] MEDS ORDERED: CefTRIAXone Sodium 1,000 MG in NS 100 ML IV SCH (09:00)
[2024-10-18] MEDS ORDERED: Potassium Chloride 20 MEQ TabCR PO SCH (09:00)
[2024-10-18] MEDS ORDERED: Furosemide 10 MG/ML 4ML Vial IV SCH (11:00)
[2024-10-18 12:46] LABS: Adenovirus Not Detected (NOT DETECT); Bordetella pertussis Not Detected (NOT DETECT); Chlamydophila pneumoniae Not Detected (NOT DETECT); Coronavirus 229E Not Detected (NOT DETECT); Coronavirus HKU1 Not Detected (NOT DETECT); Coronavirus NL63 Not Detected (NOT DETECT); Coronavirus OC43 Not Detected (NOT DETECT); Human Metapneumovirus Not Detected (NOT DETECT); Human Rhinovirus/Enterovirus Not Detected (NOT DETECT); Influenza A/2009-H1 Not Detected (NOT DETECT); Influenza A/H1 Not Detected (NOT DETECT); Influenza A/H3 Not Detected (NOT DETECT); Influenza B Not Detected (NOT DETECT); Mycoplasma pneumoniae Not Detected (NOT DETECT); Parainfluenza Virus 1 Not Detected (NOT DETECT); Parainfluenza Virus 2 Not Detected (NOT DETECT); Parainfluenza Virus 3 Not Detected (NOT DETECT); Parainfluenza Virus 4 Not Detected (NOT DETECT); Respiratory Syncytial Virus Not Detected (NOT DETECT); SARS-Cov-2 (COVID-19), BioFire Not Detected (NOT DETECT)
[2024-10-18] MEDS ORDERED: Protein Supplement 30 ML UD PT SCH (14:00)
--- NOTE | 2024-10-18 18:15 | NUR ---
SUMMARY PT INTUBATED AND SEDATED WITH PROPOFOL. WHEN SEDATION IS DOWN PT WILL OPEN EYE'S TO VOICE, INSURANCE AGENT HANDS, MOVES FEET, AND NODS HEAD. NO SBT TODAY PER DR. SLOAN. STARTED ON TUBE FEED AND TOLERATING WELL. LASIX GIVEN AND RESPONDING WELL. FAMILY AT BEDSIDE AND UPDATED BY DR. SLOAN. NO ACUTE CHANGES THIS SHIFT.
[2024-10-18] MEDS ORDERED: Heparin Sodium 5000 Units/ML 1ML MDV IV ONE (20:00)
[2024-10-19] VITALS (24 sets, daily range): BP systolic 72–144; BP diastolic 49–112
[2024-10-19] MEDS ORDERED: Miconazole Nitrate 2% 85 GM PWD TOP PRN (01:45)
[2024-10-19 02:18] LABS: BASOPHILS ABSOLUTE AUTO 0.01 K/mm3 (0.00-0.23); BASOPHILS PERCENT AUTO 0 % (0-2); EOSINOPHILS ABSOLUTE AUTO 0.01 K/mm3 (0.00-0.68); EOSINOPHILS PERCENT AUTO 0 % (0-6); Hematocrit 38.1 % (33.0-51.0); Hemoglobin 12.7 g/dL (11.5-16.0); IMMATURE GRAN ABSOLUTE AUTO 0.07 K/mm3 (0.00-0.10); IMMATURE GRAN PERCENT AUTO 1 % (0-1); LYMPHOCYTES ABSOLUTE AUTO 0.83 K/mm3 (0.84-5.20); LYMPHOCYTES PERCENT AUTO 7 % (21-46); MONOCYTES ABSOLUTE AUTO 0.55 K/mm3 (0.16-1.47); MONOCYTES PERCENT AUTO 5 % (4-13); Mean Corpuscular HGB 29.3 pg (26.0-34.0); Mean Corpuscular HGB Conc 33.3 g/dL (31.5-36.5); Mean Platelet Volume 10.9 fL (9.1-12.4); NEUTROPHILS ABSOLUTE AUTO 10.15 K/mm3 (1.96-9.15); NEUTROPHILS PERCENT AUTO 87 % (41-73); NRBC ABSOLUTE 0.02 K/mm3 (0.00-0.02); NRBC Auto 0.2 /100 WBC (0.0-0.2); Platelet Count 192 K/mm3 (150-400); RDW Coefficient Variation 15.3 % (11.7-14.2); RDW Standard Deviation 48.9 fL (35.1-46.3); Red Blood Cell Count 4.33 M/mm3 (3.80-5.20); White Blood Cell Count 11.62 K/mm3 (4.00-11.30)
[2024-10-19 02:22] LABS: Mean Corpuscular Volume 88 fL (80-100)
[2024-10-19 02:47] LABS: Bun/Creatinine Ratio 30.8 (12.0-20.0); Calcium, Blood 8.6 mg/dL (8.5-10.1); Creatinine, Blood 1.46 mg/dL (0.40-1.00); Magnesium, Blood 2.3 mg/dL (1.6-2.4); Phosphorus, Blood 4.7 mg/dL (2.5-4.9); Potassium, Blood 3.3 mmol/L (3.5-5.5)
[2024-10-19] MEDS ORDERED: Potassium Chloride 40 MEQ in NS 250 ML IV ONE (04:00)
[2024-10-19] MEDS ORDERED: Dose Adjust by Pharmacy XX STA ×2 (05:29→20:13)
--- NOTE | 2024-10-19 05:36 | NUR ---
NOC SHIFT SUMMARY NO ACUTE EVENTS OVERNIGHT. PT SEDATED W/ PROPOFOL RUNNING AT 30MCG/KG/MIN, HEPARIN INFUSION IS CURRENTLY PAUSED FOR 1 HR AND TO BE RESTARTED AT 12UNITS/KG/HR. NS TKO W/ POTASSIUM ALSO INFUSING. VENT SETTINGS UPDATE BY RT TO HIGHWAY CONSTRUCTION INSPECTOR- SEE RT NOTES FOR FURTHER DETAILS. LUNGS CLEAR/DIM T/O. MINIMAL SECRETIONS VIA ETT. PT ON CONTINOUS RACING BOARD MARKER, SINUS RATE OF 90S OBSERVED. BP STABLE W/ MAPS>65. PT AFEBRILE. GOOD OUTPUT VIA TEMP PROBE MCKEON. NO BM THIS SHIFT. TF RUNNING AT GOAL RATE OF 30ML/HR. BED BATH GIVEN DURING SHIFT. PT TURNED Q2 HOURS. PT REMAINS IN BILAT UPPER WRIST RESTRAINTS. PLAN OF CARE ONGOING.
[2024-10-19] MEDS ORDERED: Furosemide 10 MG/ML 4ML Vial IV ONE (09:00)
[2024-10-19] MEDS ORDERED: MethylPREDNISolone Sod Succ 125 MG Vial IV SCH (09:00)
[2024-10-19] MEDS ORDERED: Pantoprazole Sodium 40 MG Injection IV SCH (09:00)
[2024-10-19] MEDS ORDERED: dexmedeTOMIDine 100 ML IV SCH (09:50)
[2024-10-19] MEDS ORDERED: Potassium Chloride 20 MEQ/15 ML UDC PT ONE (11:00)
[2024-10-19] MEDS ORDERED: Albumin (Human) 25gm/100ml 100 ML IV ONE (13:05)
[2024-10-19 13:16] LABS: Base Excess Venous -2.7 mmol/L; Bicarbonate Venous 21.5 mmol/L (24.0-30.0); PCO2 Venous 40.3 mmHg (38-42); pH Blood Venous 7.36 (7.34-7.37)
[2024-10-19] MEDS ORDERED: Clarify Drug Order XX ONE (13:25)
--- NOTE | 2024-10-19 14:02 | NUR ---
PT WAS ON SBT FOR A COUPLE HOURS WHEN ETCO2 STARTED TO DROP. CHANGED TUBING AND MONITOR OUT. BP ALSO STARTED TO DROP. ALL SEDATION TURNED OFF AND DR. SLOAN TO BEDSIDE. ALBUMIN GIVEN. EXTREMITIES PINK AND WARM, NO MOTTLING NOTED. PT WAS ABLE TO WAKE UP AND WAS ABLE TO FOLLOW COMMANDS AND NOD HEAD. RESP RATE WAS INITIALLY HIGH IN THE 30'S BUT PT WAS ABLE TO CALM BACK DOWN AND RESP RATE IN THE 20'S. VBG DONE. DECISION WAS MADE TO EXTUBATE BY DR. SLOAN. EXTUBATED TO 2L NC AT 1330. FAMILY AT BEDSIDE UPDATED. PT IS RESTING NOW, DOES NOT APPEAR TO BE IN DISTRESS.
[2024-10-19] MEDS ORDERED: Furosemide 10 MG/ML 4ML Vial IV SCH ×2 (15:00)
[2024-10-19] MEDS ORDERED: OLANZapine 10 MG Vial IM ONE (15:35)
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
--- NOTE | 2024-10-19 18:12 | NUR ---
SUMMARY PT EXTUBATED AT 1330 TO 2L NC. DOING WELL RESPIRATORY VILLATORO. PT IS A/O TO PERSON AND FAMILY. GETS ANXIOUS AT TIMES YELLING OUT "I DON'T WANT TO ". NEEDS FREQUENT REASSURANCE. ONE DOSE OF ZYPREXA GIVEN IM. FAMILY AT BEDSIDE FOR REASSURANCE. BP HAS IMPROVED SINCE BEING EXTUBATED AND NOT ON SEDATIVES. SEE PREVIOUS NOTE.
[2024-10-19] MEDS ORDERED: OLANZapine 10 MG Vial IM PRN (19:20)
[2024-10-20] VITALS (15 sets, daily range): BP systolic 112–154; BP diastolic 66–109
[2024-10-20 03:18] LABS: Hematocrit 37.8 % (33.0-51.0); Hemoglobin 12.4 g/dL (11.5-16.0); Mean Corpuscular HGB 28.9 pg (26.0-34.0); Mean Corpuscular HGB Conc 32.8 g/dL (31.5-36.5); Mean Corpuscular Volume 88 fL (80-100); Mean Platelet Volume 10.7 fL (9.1-12.4); Platelet Count 163 K/mm3 (150-400); RDW Coefficient Variation 15.7 % (11.7-14.2); RDW Standard Deviation 49.9 fL (35.1-46.3); Red Blood Cell Count 4.29 M/mm3 (3.80-5.20); White Blood Cell Count 10.99 K/mm3 (4.00-11.30)
[2024-10-20 03:34] LABS: Bun/Creatinine Ratio 39.2 (12.0-20.0); Calcium, Blood 8.5 mg/dL (8.5-10.1); Creatinine, Blood 1.43 mg/dL (0.40-1.00); Magnesium, Blood 2.3 mg/dL (1.6-2.4); Phosphorus, Blood 4.1 mg/dL (2.5-4.9); Potassium, Blood 4.1 mmol/L (3.5-5.5)
[2024-10-20] MEDS ORDERED: Dose Adjust by Pharmacy XX STA (03:46)
--- NOTE | 2024-10-20 05:28 | NUR ---
NOC SHIFT SUMMARY NO ACUTE EVENTS OVERNIGHT. PT AOX3. UNSURE OF MONTH. COOPERATIVE W/ CARE. PT HAVING CONVERSATIONS W/ HERSELF. HEPARIN INFUSING AT 14 UNITS/KG/HR. PT LUNGS CLEAR. ON 2L VIA NC, MAINTAINING GOOD SATURATIONS. SINUS TACH RATE OF 100S ON MONITOR, BP STABLE. TEMP PROBE MCKEON IN PLACE AND DRAINING TO GRAVITY. PT AFEBRILE. NO BM THIS SHIFT. NO NEW SKIN ISSUES OBSERVED. PT TURNED Q2 HOURS. CALL LIGHT W/ IN REACH. PLAN OF CARE ONGOING.
--- NOTE | 2024-10-20 08:47 | NUR ---
ASSUMED CARE AT 0700 PT LAYING IN BED AWAKE AND FIXATED ON A SPOT ON THE CELING. SHE IS A/O X3 (PERSON/DATE/FOLLOWING DIRECTIONS) BUT NOT PLACE. SPO2 >98% ON 3L NC. AFEBRILE. HR 100'S. BP STABLE. CURRENTLY NPO. MCKEON IN PLACE AND DRAINING TO GRAVITY. HEPARIN INFUSING AT 14UNITS/KG/HR. POWERGLIDE TO LUE PATENT WITH DRESSING C/D/I. SEE SHIFT ASSESSMENT FOR FULL ASSESSMENT.
[2024-10-20] MEDS ORDERED: Apixaban 5 MG Tab PO SCH (12:06)
[2024-10-20] MEDS ORDERED: Mometasone/Formoterol MDI 200/5 mcg 13 GM INH SCH (12:10)
--- NOTE | 2024-10-20 14:35 | NUR ---
TRANSFER PT [facility].
--- NOTE | 2024-10-20 17:51 | NUR ---
PT ARRIVED FROM ICU PT ABLE TO STAND AND TRANSFER 3 PA VIA WALKER AND GAIT BELT, GAIT UNSTEADY. PT ALERT AND SLOW TO RESPOND TO QUESTIONS. VITALS HRR ST 100'S, SBP 150'S, SATS ABOVE 95% ON 3L OF O2, AFEBRILE. FAMILY AT THE BEDSIDE. PT DENIES ANY PAIN/DISCOMFORT. PT KEPT NPO AT THIS TIME. SWABS AT THE BEDSIDE. AWAITING FOR SWALLOW EVAL. PT HAS BEEN PLEASANT AND COOPERATIVE. CALL LIGHTS IN REACH WILL REPORT TO ONCOMING SHIFT
--- NOTE | 2024-10-20 19:30 | NUR ---
ASSUMPTION OF CARE ASSUMED PT'S CARE AT 1900,BEDSIDE REPORT COMPLETED WITH DAYSMTFT NURSE.PT ON 3L OXYGEN VIA NC,OXYGEN SATURATION >92%.PT DENIES PAIN,DENIES NEEDS.PLAN OF CARE REVIEWED.CALL LIGHT AND PT'S IEMS WITHIN REACH.WILL CONTINUE TO MONITOR.
[2024-10-20] MEDS ORDERED: PredniSONE 20 MG Tab PO SCH (21:00)
[2024-10-21] VITALS (7 sets, daily range): BP systolic 146–165; BP diastolic 84–102
[2024-10-21 03:33] LABS: BASOPHILS ABSOLUTE AUTO 0.02 K/mm3 (0.00-0.23); BASOPHILS PERCENT AUTO 0 % (0-2); EOSINOPHILS PERCENT AUTO 0 % (0-6); Hematocrit 39.8 % (33.0-51.0); IMMATURE GRAN ABSOLUTE AUTO 0.07 K/mm3 (0.00-0.10); IMMATURE GRAN PERCENT AUTO 1 % (0-1); LYMPHOCYTES ABSOLUTE AUTO 0.72 K/mm3 (0.84-5.20); LYMPHOCYTES PERCENT AUTO 9 % (21-46); MONOCYTES ABSOLUTE AUTO 0.32 K/mm3 (0.16-1.47); MONOCYTES PERCENT AUTO 4 % (4-13); Mean Corpuscular HGB 28.8 pg (26.0-34.0); Mean Corpuscular HGB Conc 32.7 g/dL (31.5-36.5); Mean Corpuscular Volume 88 fL (80-100); Mean Platelet Volume 10.6 fL (9.1-12.4); NEUTROPHILS PERCENT AUTO 86 % (41-73); NRBC ABSOLUTE 0.02 K/mm3 (0.00-0.02); NRBC Auto 0.3 /100 WBC (0.0-0.2); Platelet Count 177 K/mm3 (150-400); RDW Coefficient Variation 15.7 % (11.7-14.2); Red Blood Cell Count 4.51 M/mm3 (3.80-5.20); White Blood Cell Count 7.93 K/mm3 (4.00-11.30)
[2024-10-21 03:57] LABS: Calcium, Blood 9.3 mg/dL (8.5-10.1); Creatinine, Blood 1.31 mg/dL (0.40-1.00); Magnesium, Blood 2.7 mg/dL (1.6-2.4); Phosphorus, Blood 4.3 mg/dL (2.5-4.9); Potassium, Blood 4.4 mmol/L (3.5-5.5)
[2024-10-21 03:58] LABS: Base Excess Venous 1.8 mmol/L; Bicarbonate Venous 25.4 mmol/L (24.0-30.0); PCO2 Venous 42.8 mmHg (38-42)
--- NOTE | 2024-10-21 06:18 | NUR ---
PT AWAKE MOST OF THE NIGHT,MOSTLY STARING AT THE CEILING.PT REPORTED THAT SHE SEES DIAMONDS IN THE CEILING.PT A&O X3.SBP 126-165.PT HAD 12 BEAT RUN OF SVTS,PT ASYMPTOMATIC. NOTIFIED OF THE ELEVATED BPS AND THE SVTS.NO ORDERS GIVEN.PT BLADDER SCANNED FOR NO URINE OUTPUT,569ML IN BLADDER.STRAIGHT CATHED 700ML OBTAINED.PT DENIES PAIN,DENIES NEEDS AT THIS TIME.CALL LIGHT AND PT'S ITEMS WITHIN REACH.WILL GIVE REPORT TO DAYSHIFT NURSE FOR CONTINUITY OF CARE.
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
--- NOTE | 2024-10-21 12:46 | NUR ---
UPDATE STATUS CHANGED TO MEDICAL WITH TELEMETRY. BED ASSIGNMENT PROVIDED AND REPORT GIVEN TO RADHA RN TO ASSUME CARE. FAMILY AT BEDSIDE NOTIFIED AND PT TO BE PACKED UP AND TRANSFERRED TO NEW ROOM WITH ALL BELONGINGS
--- NOTE | 2024-10-21 14:22 | NUR ---
1300- PT TO [facility] FLOOR IN STABLE CONDITION ON 3L OXYGEN AFTER RECEIVING REPORT FROM LEDY WILLOW ANALYST.
--- NOTE | 2024-10-21 18:29 | NUR ---
SUMMARY- AAOX2-3. X2 ASSIST TO BSC. PT URINATED ONLY 10ML ON BSC, SO PT WAS STRAIGHT CATHED AND 400 ML WAS DRAINED. PT ON 3L THIS SHIFT. PT DENIES PAIN. NO OTHER ACUTE EVENTS NOTED.
[2024-10-22 04:21] VITALS: BP 154/96
[2024-10-22 07:47] VITALS: BP 137/84
[2024-10-22] MEDS ORDERED: PredniSONE 20 MG Tab PO SCH (09:00)
[2024-10-22] MEDS ORDERED: NS 250 ML IV PRN (09:40)
[2024-10-22] MEDS ORDERED: Acetaminophen 325 MG TABLET PO PRN (11:35)
[2024-10-22] MEDS ORDERED: DOCUZEN 8.6-501 EACH PO (12:40)
--- NOTE | 2024-10-22 14:07 | NUR ---
1405-DC REPORT GIVEN TO TRINO DE JESUS AT [facility]. ALL QUESTIONS ANSWERED. PT LEFT WITH MCKEON CATHETER. PT IN STABLE CONDITION AND LEFT WITH ALL BELONGINGS. PT PICKED UP IN VIA TRANSPORT.
== END 2024-10-22 13:53 | DRG 208 ==
LOC: ER 05:23 → PCU 07:48 → ICUE 07:48 → PCU 09:30 → ICUE 18:25 → PCU 10-20 14:23 → MEDS 10-21 13:32
PROVIDERS: Emergency Medicine; Internal Medicine; Internal Medicine Critical Care Medicine; Student in an Organized Health Care Education/Training Program; ADMIT Internal Medicine
PROC: 5A1945Z Respiratory Ventilation, 24-96 Consecutive Hours (ICD-10-PCS; principal; 2024-10-17)
PROC: 0BH17EZ Insertion of Endotracheal Airway into Trachea, Via Natural or Artificial Opening (ICD-10-PCS; 2024-10-17)
PROC: 5A09357 Assistance with Respiratory Ventilation, Less than 24 Consecutive Hours, Continuous Positive Airway Pressure (ICD-10-PCS; 2024-10-17)
PROC: 4A033R1 Measurement of Arterial Saturation, Peripheral, Percutaneous Approach (ICD-10-PCS; 2024-10-17)
DX: J84.9 Interstitial pulmonary disease, unspecified (principal); I21.A1 Myocardial infarction type 2; G93.41 Metabolic encephalopathy; J96.21 Acute and chronic respiratory failure with hypoxia; J96.22 Acute and chronic respiratory failure with hypercapnia; N17.9 Acute kidney failure, unspecified; E87.20 Acidosis, unspecified; E87.70 Fluid overload, unspecified; N18.30 Chronic kidney disease, stage 3 unspecified; I48.0 Paroxysmal atrial fibrillation; I07.1 Rheumatic tricuspid insufficiency; E66.9 Obesity, unspecified; I27.23 Pulmonary hypertension due to lung diseases and hypoxia; I27.24 Chronic thromboembolic pulmonary hypertension; J43.9 Emphysema, unspecified; T38.0X5A Adverse effect of glucocorticoids and synthetic analogues, initial encounter; E78.5 Hyperlipidemia, unspecified; I12.9 Hypertensive chronic kidney disease with stage 1 through stage 4 chronic kidney disease, or unspecified chronic kidney disease; Z85.3 Personal history of malignant neoplasm of breast; Z86.711 Personal history of pulmonary embolism; Z90.13 Acquired absence of bilateral breasts and nipples; Z88.8 Allergy status to other drugs, medicaments and biological substances; Z99.81 Dependence on supplemental oxygen; Z79.01 Long term (current) use of anticoagulants; Z79.51 Long term (current) use of inhaled steroids; Z68.37 Body mass index [BMI] 37.0-37.9, adult; Z87.891 Personal history of nicotine dependence
CPT/HCPCS: 0202U; 31500; 36415; 36600; 51702; 71045; 80048; 80053; 80069; 82803; 83605; 83735; 83880; 84100; 84145; 84484; 85025; 85027; 85610; 85730; 87040; 87070; 87205; 92526; 92610; 93005; 93010; 94002; 94003; 94640; 94660; 94664; 94760; 94762; 97110; 97161; 97530; 99285-25; A9270; C1751; C8929; J0696; J1644; J1940; J2060; J2270; J2470; J2704; J2919; J3370; J3480; J7030; J7050; J7512; P9047; Q9957

== ENCOUNTER 2025-02-07 02:00 | Emergency (ER) | payer MEDICARE ==
[~2025-02-07] VITALS: Ht 160 cm; Wt 91.2 kg
[~2025-02-07 02:00] MED LIST changes: +BACLOFEN5 M1 PO; -BREO ELLIPTA 11 EAC1 INH; -CYCL10 PO; -Crestor40 MG PO; +Cyclobenzaprine5 MG PO; +DOCUZEN 8.6-501 EACH PO; +POTCHL20ER PO; +ROSUVASTATIN CA20 MG PO; +SOAANZ20 M1 PO
[2025-02-07] MEDS ORDERED: Ipratropium/Albuterol SulF 2.5-0.5MG/3 ML Amp INH PRN (02:15)
[2025-02-07 02:22] LABS: BASOPHILS ABSOLUTE AUTO 0.03 K/mm3 (0.00-0.23); BASOPHILS PERCENT AUTO 0 % (0-2); EOSINOPHILS ABSOLUTE AUTO 0.07 K/mm3 (0.00-0.68); EOSINOPHILS PERCENT AUTO 1 % (0-6); Hematocrit 34.7 % (33.0-51.0); Hemoglobin 11.5 g/dL (11.5-16.0); IMMATURE GRAN ABSOLUTE AUTO 0.07 K/mm3 (0.00-0.10); IMMATURE GRAN PERCENT AUTO 1 % (0-1); LYMPHOCYTES ABSOLUTE AUTO 1.64 K/mm3 (0.84-5.20); LYMPHOCYTES PERCENT AUTO 14 % (21-46); MONOCYTES ABSOLUTE AUTO 0.82 K/mm3 (0.16-1.47); MONOCYTES PERCENT AUTO 7 % (4-13); Mean Corpuscular HGB Conc 33.1 g/dL (31.5-36.5); Mean Corpuscular Volume 92 fL (80-100); NEUTROPHILS ABSOLUTE AUTO 8.73 K/mm3 (1.96-9.15); NEUTROPHILS PERCENT AUTO 77 % (41-73); NRBC ABSOLUTE 0.00 K/mm3 (0.00-0.02); NRBC Auto 0.0 /100 WBC (0.0-0.2); Platelet Count 232 K/mm3 (150-400); RDW Coefficient Variation 15.9 % (11.7-14.2); RDW Standard Deviation 53.6 fL (35.1-46.3)
[2025-02-07 02:48] LABS: Alanine Aminotransfer (ALT/SGP 34.0 U/L (12-78); Albumin, Blood 3.3 g/dL (3.4-5.0); Albumin/Globulin Ratio 1.0 (0.8-1.8); Anion Gap 9.0 mmol/L (3-11); Aspartate Aminotrans (AST/SGOT 33.0 U/L (12-37); Bilirubin, Total 0.6 mg/dL (0.1-1.0); Blood Urea Nitrogen 32.0 mg/dL (8-24); CO2, Blood 27.0 mmol/L (21-32); Calcium, Blood 8.4 mg/dL (8.5-10.1); Chloride, Blood 104.0 mmol/L (98-108); Creatinine, Blood 1.31 mg/dL (0.40-1.00); Globulin, Blood 3.3 g/dL (2.2-4.0); Glucose, Blood 115.0 mg/dL (70-99); Potassium, Blood 4.5 mmol/L (3.5-5.5); Sodium, Blood 135.0 mmol/L (136-145); Total Protein, Blood 6.6 g/dL (6.4-8.2)
[2025-02-07 03:12] LABS: Prothrombin Time Results 13.6 Sec (9.7-11.5)
[2025-02-08] MEDS ORDERED: SILD25T (23:17)
== END 2025-02-07 05:03 | disposition home or self-care (01) ==
LOC: ER 02:00
PROVIDERS: Emergency Medicine
DX: J44.89 Other specified chronic obstructive pulmonary disease (principal); J45.901 Unspecified asthma with (acute) exacerbation; D72.829 Elevated white blood cell count, unspecified; E88.09 Other disorders of plasma-protein metabolism, not elsewhere classified; R94.4 Abnormal results of kidney function studies; E78.5 Hyperlipidemia, unspecified; Z79.899 Other long term (current) drug therapy; Z79.51 Long term (current) use of inhaled steroids; Z88.6 Allergy status to analgesic agent; Z88.8 Allergy status to other drugs, medicaments and biological substances
CPT/HCPCS: 71046; 80053; 84484; 85025; 85610; 93005; 93010; 99285-25

== ENCOUNTER 2025-02-08 22:18 | Inpatient (IN) | payer MEDICARE ==
[~2025-02-08] VITALS: Ht 160 cm; Wt 92.6 kg
[2025-02-08] MEDS ORDERED: Albuterol 2.5 MG/3 ML VIAL INH SCH (22:35)
[2025-02-08] MEDS ORDERED: Ipratropium/Albuterol SulF 2.5-0.5MG/3 ML Amp INH ONE (22:35)
[2025-02-08 22:41] LABS: BASOPHILS ABSOLUTE AUTO 0.03 K/mm3 (0.00-0.23); BASOPHILS PERCENT AUTO 0 % (0-2); EOSINOPHILS ABSOLUTE AUTO 0.24 K/mm3 (0.00-0.68); EOSINOPHILS PERCENT AUTO 3 % (0-6); Hematocrit 33.5 % (33.0-51.0); Hemoglobin 10.9 g/dL (11.5-16.0); IMMATURE GRAN ABSOLUTE AUTO 0.07 K/mm3 (0.00-0.10); IMMATURE GRAN PERCENT AUTO 1 % (0-1); LYMPHOCYTES ABSOLUTE AUTO 1.87 K/mm3 (0.84-5.20); LYMPHOCYTES PERCENT AUTO 20 % (21-46); MONOCYTES ABSOLUTE AUTO 0.63 K/mm3 (0.16-1.47); MONOCYTES PERCENT AUTO 7 % (4-13); Mean Corpuscular HGB Conc 32.5 g/dL (31.5-36.5); Mean Corpuscular Volume 95 fL (80-100); NEUTROPHILS ABSOLUTE AUTO 6.42 K/mm3 (1.96-9.15); NEUTROPHILS PERCENT AUTO 69 % (41-73); NRBC ABSOLUTE 0.00 K/mm3 (0.00-0.02); NRBC Auto 0.0 /100 WBC (0.0-0.2); Platelet Count 242 K/mm3 (150-400); RDW Coefficient Variation 15.8 % (11.7-14.2); RDW Standard Deviation 54.4 fL (35.1-46.3)
[2025-02-08 23:07] LABS: Alanine Aminotransfer (ALT/SGP 36.0 U/L (12-78); Albumin, Blood 3.1 g/dL (3.4-5.0); Albumin/Globulin Ratio 0.9 (0.8-1.8); Anion Gap 11.0 mmol/L (3-11); Aspartate Aminotrans (AST/SGOT 35.0 U/L (12-37); Bilirubin, Total 0.8 mg/dL (0.1-1.0); Blood Urea Nitrogen 31.0 mg/dL (8-24); CO2, Blood 25.0 mmol/L (21-32); Calcium, Blood 8.3 mg/dL (8.5-10.1); Chloride, Blood 103.0 mmol/L (98-108); Creatinine, Blood 1.54 mg/dL (0.40-1.00); Globulin, Blood 3.3 g/dL (2.2-4.0); Glucose, Blood 167.0 mg/dL (70-99); Magnesium, Blood 1.6 mg/dL (1.6-2.4); Potassium, Blood 4.5 mmol/L (3.5-5.5); Sodium, Blood 134.0 mmol/L (136-145); Total Protein, Blood 6.4 g/dL (6.4-8.2)
[2025-02-08] MEDS ORDERED: NS 250 ML IV SCH (23:10)
[2025-02-08] MEDS ORDERED: SILD25T (23:17)
[2025-02-09] MEDS ORDERED: Nystatin 100,000 Unit/ML Susp 5 ML UDC SS ONE (00:25)
[2025-02-09] MEDS ORDERED: FURO40 PO (00:37)
[2025-02-09] MEDS ORDERED: Ipratropium/Albuterol SulF 2.5-0.5MG/3 ML Amp INH SCH (01:00)
[2025-02-09] MEDS ORDERED: Albuterol 2.5 MG/3 ML VIAL INH SCH (01:00)
[2025-02-09 01:16] LABS: pH Blood Venous 7.42 (7.34-7.37)
[2025-02-09] MEDS ORDERED: OPSUMIT10 MG PO (02:16)
[2025-02-09] MEDS ORDERED: REVATIO20 MG PO (02:17)
[2025-02-09 02:19] VITALS: BP 129/71
[2025-02-09 02:32] LABS: BASOPHILS ABSOLUTE AUTO 0.03 K/mm3 (0.00-0.23); BASOPHILS PERCENT AUTO 0 % (0-2); EOSINOPHILS ABSOLUTE AUTO 0.03 K/mm3 (0.00-0.68); EOSINOPHILS PERCENT AUTO 0 % (0-6); Hematocrit 32.3 % (33.0-51.0); Hemoglobin 10.4 g/dL (11.5-16.0); IMMATURE GRAN ABSOLUTE AUTO 0.05 K/mm3 (0.00-0.10); IMMATURE GRAN PERCENT AUTO 0 % (0-1); LYMPHOCYTES ABSOLUTE AUTO 1.42 K/mm3 (0.84-5.20); LYMPHOCYTES PERCENT AUTO 13 % (21-46); MONOCYTES ABSOLUTE AUTO 0.74 K/mm3 (0.16-1.47); MONOCYTES PERCENT AUTO 7 % (4-13); Mean Corpuscular HGB Conc 32.2 g/dL (31.5-36.5); Mean Corpuscular Volume 96 fL (80-100); NEUTROPHILS ABSOLUTE AUTO 8.93 K/mm3 (1.96-9.15); NEUTROPHILS PERCENT AUTO 80 % (41-73); NRBC ABSOLUTE 0.00 K/mm3 (0.00-0.02); NRBC Auto 0.0 /100 WBC (0.0-0.2); Platelet Count 208 K/mm3 (150-400); RDW Coefficient Variation 15.8 % (11.7-14.2); RDW Standard Deviation 55.2 fL (35.1-46.3)
[2025-02-09] MEDS ORDERED: Albuterol 2.5 MG/3 ML VIAL INH PRN (02:35)
[2025-02-09 02:46] LABS: Prothrombin Time Results 13.8 Sec (9.7-11.5)
[2025-02-09 02:53] LABS: Alanine Aminotransfer (ALT/SGP 36.0 U/L (12-78); Albumin, Blood 3.1 g/dL (3.4-5.0); Albumin/Globulin Ratio 0.9 (0.8-1.8); Anion Gap 10.0 mmol/L (3-11); Aspartate Aminotrans (AST/SGOT 33.0 U/L (12-37); Bilirubin, Total 0.6 mg/dL (0.1-1.0); Blood Urea Nitrogen 35.0 mg/dL (8-24); CO2, Blood 26.0 mmol/L (21-32); Calcium, Blood 7.8 mg/dL (8.5-10.1); Chloride, Blood 103.0 mmol/L (98-108); Creatinine, Blood 1.56 mg/dL (0.40-1.00); Globulin, Blood 3.3 g/dL (2.2-4.0); Glucose, Blood 143.0 mg/dL (70-99); Potassium, Blood 3.7 mmol/L (3.5-5.5); Sodium, Blood 135.0 mmol/L (136-145); Total Protein, Blood 6.4 g/dL (6.4-8.2)
--- NOTE | 2025-02-09 03:05 | NUR ---
Critical Lab: Lactic Acid 2.9 Call from lab notifying this RN of critical lab above. Dr. Cong Spears informed via phone call. Provided the following info: hx of severe hypertension, pt on airvo, being diuresed, dx: COPD exac, and having received 250mL NS bolus in ED prior to arriving to unit. No new orders. Patient tolerating PO intake. Will continue to monitor.
--- NOTE | 2025-02-09 07:21 | NUR ---
Shift Summary Patient arrived to unit from ED. Received report from Ruthie ED-RN. Settled to room by Break Nurse Laisha. Upon meeting patient, she is on Airvo at lowest setting and connected to NIB ASSEMBLER. Patient is anxious calling quite frequently for little needs, very pleasant and apologetic however. C/O restless leg but does not take anything specifically for this. Flexeril given per patient's request. During shift, pt wanted to use the bedside commode. 2PA to commode, able to bear full weight on her own, tolerated this well but needing breaks in between movement to catch breath. O2 dips with activity and pt does become dyspneic. Patient displays knowledge on techniques to improve respiratory status (pursed lip, take it slow and stop in between movements to catch breath prior to continuing with activity, etc), but can overestimate ability and over work herself. Oxygen does rebound nicely. After getting up to the commode, pt had stated she can pull herself up in the bed which she was able to, but then could not seem to catch her breath anymore and went into a panic mode briefly. Patient is very restless and uncomfortable. Was able to calm down after a little bit. Tele: ST 110-140s. Changed Airvo to nasal cannula @ 6 LPM per patient request and at the advice of RT Paula who is also following patient. Call light in reach, bed in lowest position. Report handed off to day RN.
[2025-02-09 08:35] VITALS: BP 124/68
[2025-02-09] MEDS ORDERED: Enoxaparin 40 MG/0.4 ML SYR SC SCH (09:00)
[2025-02-09 11:19] VITALS: BP 112/70
[2025-02-09 15:35] VITALS: BP 103/54
--- NOTE | 2025-02-09 18:17 | NUR ---
SHIFT SUMMARY PATIENT ALERT AND INTERACTIVE. PATIENT FREQUENTLY ON HER CALL LIGHT FIRST PART OF SHIFT. PATIENT ABLE TO TRANSFER TO BED, CHAIR, COMMODE WITH MINIMAL STAND BY ASSIST. PATIENT EASILY SOB WITH ANY EXCERTION. PATIENT RECENTLY DISCHARGED FROM [facility]. PATIENT TO RETURN TO [facility] IN ABOUT A WEEK FOR FOLLOW UP. PATIENT HAS PULMONARY HTN. PROVIDED EDUCATION RELATED TO MEDICATIONS, DIET, AND FLUID INTAKE. PATIENT STATES SHE IS WELL AWARE. DIURETICS GIVEN WITH MODERATE RESPONSE.
[2025-02-09 19:26] VITALS: BP 90/58
--- NOTE | 2025-02-09 19:44 | NUR ---
Topical Miconazole BID Patient has redness to abdominal folds and groin. Called and got an order from Edita Shelby NP for miconazole powder to be applied to affected areas twice daily. Order entered.
[2025-02-09] MEDS ORDERED: Miconazole Nitrate 2% 85 GM PWD TOP SCH (21:00)
--- NOTE | 2025-02-09 23:46 | NUR ---
Tylenol 500mg PO Q6H PRN for mild pain Patient c/o generalized back ache and requesting tylenol. Had already repositioned and even gotten a recliner to improve comfort and aide is adequate sleep. This had helped some, but not completely. Called and received an order from Edita Shelby NP to give tylenol 500mg by mouth every 6 hours as needed for mild pain. Order entered.
[2025-02-10 00:15] VITALS: BP 130/66
[2025-02-10 03:54] VITALS: BP 111/54
[2025-02-10 06:09] LABS: Albumin, Blood 3.2 g/dL (3.4-5.0); Anion Gap 10 mmol/L (3-11); Blood Urea Nitrogen 36 mg/dL (8-24); CO2, Blood 26 mmol/L (21-32); Calcium, Blood 8.5 mg/dL (8.5-10.1); Chloride, Blood 102 mmol/L (98-108); Creatinine, Blood 1.63 mg/dL (0.40-1.00); Glucose, Blood 136 mg/dL (70-99); Phosphorus, Blood 4.0 mg/dL (2.5-4.9); Potassium, Blood 2.8 mmol/L (3.5-5.5); Sodium, Blood 135 mmol/L (136-145)
--- NOTE | 2025-02-10 07:40 | NUR ---
Shift Summary At the start of shift, patient was uncomfortable and anxious, calling frequently to be readjusted. Multiple adjustments made, all were ineffective. Gave flexeril which helped some but not enough. Patient finally agreeable to try recliner and requested tylenol for back pain. Per patient, she skipped dinner and wanted a snack, snack provided. Patient is sleeping better tonight in the recliner and anxiety has significantly decreased. Dry cough still present which does wake her up ocassionally. Overall, pt had a better night.
[2025-02-10 07:52] VITALS: BP 130/65
[2025-02-10] MEDS ORDERED: NS 250 ML IV PRN (08:45)
[2025-02-10] MEDS ORDERED: Nystatin 100,000 Unit/ML Susp 5 ML UDC PO SCH (09:00)
[2025-02-10 11:43] VITALS: BP 116/76
[2025-02-10] MEDS ORDERED: BREO ELLIPTA 11 EAC1 INH (13:38)
[2025-02-10 14:55] VITALS: BP 126/65
--- NOTE | 2025-02-10 17:25 | NUR ---
SHIFT SUMMARY RECORDS REQUESTED FROM [facility] WERE DELIVERED AND PLACED ON FRONT OF CHART. MESSAGE LEFT WITH DR. BURCIAGA REGARDING THIS. PT TITRATED DOWN TO 5L, WHICH IS HER BASELINE HOME O2. DYSPNEA WITH EXERTION, BUT RECOVERS WELL WITH REST. PT UP TO BSC FOR URINATION TODAY. 1P ASSIST. PT BECAME ANXIOUS ONCE TODAY IN RELATION TO HER BREATHING. THERAPUTIC COMMNICATION AND TOUCH USED TO HELP CALM HER DOWN. PT GOOD AT USING PURSED LIP BREATHING TO HELP CATCH HER BREATH. NO OTHER ACUTE CHANGES IN ASSESSMENT AT THIS TIME. VS REVIEWED. CALL LIGHT IN REACH. DENIES OTHER NEEDS AT THIS TIME.
[2025-02-10 19:39] VITALS: BP 100/60
[2025-02-11] VITALS (7 sets, daily range): BP systolic 105–124; BP diastolic 53–74
--- NOTE | 2025-02-11 04:14 | NUR ---
SHIFT SUMMARY PT ALERT ORIENTED X 4 ABLE TO VERBALIZE NEEDS CALLS APPROPRIATELY. HAS BEEN VERY RESTLESS MOST OF THE NIGHT SITTING UP ON SIDE OF BED A FEW TIMES THEN LYING BACK DOWN. AT FIRST SHE REFUSED TO TAKE ANYTHING TO HELP WITH HER ANXIETY. SHE THEN CALLED ME STATING THAT SHE WAS HAVING A PANIC ATTACK AND I WAS ABLE TO TALK HER INTO LETTING ME GET A ORDER FOR SOMETHING FOR ANXIETY. I CALLED MD AND GOT A ONE TIME ORDER FOR ATIVAN 0.5MG. MEDICATION WAS GIVING AND SHE WAS ABLE TO GET SOME REST. REMAINS ON TELEMETRY AT [facility] AT 91. SHES DUE TO HAVE A CT SCAN ON THE AT [facility]. REMAINS ON 5L VIA NC WHICH IS BASELINE FOR HER. SHES DUE TO HAVE A PULMONOLOGY CONSULT WITH [facility] TODAY. REMAINS ON A CONTINUOUS PULSE OX. SHE GETS VERY SOB WITH ANY EXERTION AND TAKES A SECOND TO RECOVER, C/O BACK PAIN MEDICATED WITH TYLENOL AND FLEXERIL. CONTINUES WITH THRUSH TO HER MOUTH REMAINS ON NYSTATIN. RESTING IN BED AT THIS TIME WITH CALL LIGHT IN REACH
[2025-02-11] MEDS ORDERED: Polyethylene Glycol 3350 17 gm PO SCH (09:00)
[2025-02-11 11:24] LABS: Albumin, Blood 3.3 g/dL (3.4-5.0); Anion Gap 13 mmol/L (3-11); Blood Urea Nitrogen 35 mg/dL (8-24); CO2, Blood 27 mmol/L (21-32); Calcium, Blood 9.0 mg/dL (8.5-10.1); Chloride, Blood 101 mmol/L (98-108); Creatinine, Blood 1.53 mg/dL (0.40-1.00); Glucose, Blood 104 mg/dL (70-99); Magnesium, Blood 1.9 mg/dL (1.6-2.4); Phosphorus, Blood 3.7 mg/dL (2.5-4.9); Potassium, Blood 3.4 mmol/L (3.5-5.5); Sodium, Blood 138 mmol/L (136-145)
[2025-02-11] MEDS ORDERED: Furosemide 10 MG / ML 2ML Vial IV ONE (13:35)
[2025-02-11] MEDS ORDERED: Ipratropium/Albuterol SulF 2.5-0.5MG/3 ML Amp INH SCH (13:35)
--- NOTE | 2025-02-11 17:28 | NUR ---
SHIFT SUMMARY PT SEEN BY PULMONOLOGY TODAY. UP TO BSC WITH 1P ASSIST TO VOID T/O THE DAY. BED BATH GIVEN BY AIDE TODAY. PT UP TO DANGLE FOR MEALS ON SIDE OF BED. SOLUMEDEROL, AND AN EXTRA DOSE OF LASIX GIVEN THIS AFTERNOON ORDERED. NO OTHER ACUTE CHANGES IN ASSESSMENT AT THIS TIME. VS REVIEWED. CALL LIGHT IN REACH. DENIES OTHER NEEDS AT THIS TIME.
[2025-02-12 03:55] VITALS: BP 111/61
--- NOTE | 2025-02-12 04:21 | NUR ---
SHIFT SUMMARY PT ALERT ORIENTED ABLE TO VERBALIZE NEEDS. SHE REMAINS VERY ANXIOUS EVEN AFTER GIVING HER THE ATARAX AND TYLENOL AND FLEXERIL FOR PAIN. SHES BEEN UP AND DOWN ALL NIGHT AGAIN FOR THE SECOND NIGHT IN A ROW. SHE REMAINS WITH SOB WITH EXERTION AND IT TAKES A MINUTE TO REGAIN HER OXYGENATION AFTER GETTING UP OR DOWN. HER BNP THIS AM WAS 655. REMAINS ON 5L VIA NC WHICH IS BASELINE FOR HER. REMAINS ON TELEMETRY AT AT 108. NO C/O CHEST PAIN OR PRESSURE JUSE VERY ANXIOUS. REMAINS ON NYSTATIN FOR THRUSH. VSS SATTING AT 90-98% ON 5L. SHES SCHEDULED TO HAVE A CT SCAN DONE AT [facility] ON THE . 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 IN BED AT THIS TIME WITH CALL LIGHT IN REACH
[2025-02-12 04:48] LABS: BASOPHILS ABSOLUTE AUTO 0.03 K/mm3 (0.00-0.23); BASOPHILS PERCENT AUTO 0 % (0-2); EOSINOPHILS ABSOLUTE AUTO 0.26 K/mm3 (0.00-0.68); EOSINOPHILS PERCENT AUTO 3 % (0-6); Hematocrit 31.6 % (33.0-51.0); Hemoglobin 10.3 g/dL (11.5-16.0); IMMATURE GRAN ABSOLUTE AUTO 0.04 K/mm3 (0.00-0.10); IMMATURE GRAN PERCENT AUTO 0 % (0-1); LYMPHOCYTES ABSOLUTE AUTO 1.49 K/mm3 (0.84-5.20); LYMPHOCYTES PERCENT AUTO 16 % (21-46); MONOCYTES ABSOLUTE AUTO 0.52 K/mm3 (0.16-1.47); MONOCYTES PERCENT AUTO 6 % (4-13); Mean Corpuscular HGB Conc 32.6 g/dL (31.5-36.5); Mean Corpuscular Volume 94 fL (80-100); NEUTROPHILS ABSOLUTE AUTO 6.75 K/mm3 (1.96-9.15); NEUTROPHILS PERCENT AUTO 74 % (41-73); NRBC ABSOLUTE 0.00 K/mm3 (0.00-0.02); NRBC Auto 0.0 /100 WBC (0.0-0.2); Platelet Count 210 K/mm3 (150-400); RDW Coefficient Variation 15.8 % (11.7-14.2); RDW Standard Deviation 53.7 fL (35.1-46.3)
[2025-02-12 05:22] LABS: Anion Gap 10.0 mmol/L (3-11); Blood Urea Nitrogen 33.0 mg/dL (8-24); CO2, Blood 23.0 mmol/L (21-32); Calcium, Blood 8.8 mg/dL (8.5-10.1); Chloride, Blood 106.0 mmol/L (98-108); Creatinine, Blood 1.47 mg/dL (0.40-1.00); Glucose, Blood 121.0 mg/dL (70-99); Potassium, Blood 3.8 mmol/L (3.5-5.5); Sodium, Blood 135.0 mmol/L (136-145)
[2025-02-12 07:28] VITALS: BP 127/68
[2025-02-12] MEDS ORDERED: JARDIANCE10 MG PO (13:07)
[2025-02-12] MEDS ORDERED: HYDPAM25 PO (13:07)
[2025-02-12] MEDS ORDERED: IPRAT-ALBUT 0.5-3 ML INH (13:08)
[2025-02-12] MEDS ORDERED: DELTASONE20 MG PO (13:10)
[2025-02-12] MEDS ORDERED: ALBU90OI INH (13:12)
[2025-02-12] MEDS ORDERED: MICONAZOLE NITR85 GM TOP (13:12)
[2025-02-12 14:59] VITALS: BP 106/76
--- NOTE | 2025-02-12 17:48 | NUR ---
SHIFT SUMMARY PATIENT A/OX4, ABLE TO MAKE NEEDS KNOWN. ANXIOUS INTERMITTENLY, PRN HYDROXYZINE ADMINISTERER PER SEP. PATIENT ON 6LPM OXYGEN VIA NASAL CANNULA, 10 LPM WITH ACTIVITY. ORDER FOR HOME EVAL TO BE COMPLETED. PATIENT APPEALED DISCHARGE TODAY, NO IV AND NO TELEMETRY ORDER IN PLACE. CONTINUOUS PULSE OX IN PLACE. [facility] DELIVERED OXYGEN TANKS TO PATIENT'S ROOM, CONCENTRATOR NEEDS TO BE DELIVERED TO PATIENT'S HOME. NO OTHER CONCERNS AT THIS TIME, WILL CONTINUE TO MONITOR.
[2025-02-12 20:06] VITALS: BP 123/53
[2025-02-13 01:55] VITALS: BP 112/62
--- NOTE | 2025-02-13 04:20 | NUR ---
SHIFT SUMMARY PT ALERT ORIENTED ABLE TO VERBALIZE NEEDS. REMAINS ON 6L OF O2. VSS SATTING AT 96% OF O2 ON 6L. CONTINUES ON A CONTINUOUS PULSE OX. SHE DOES GET SOB ON EXERTION AND REQUIRES TO HAVE HER O2 TURNED UP WHILE SHES AMBULATING. REMAINS ON [place]STATIN FOR THRUSH. C/O BACK PAIN MEDICATED WITH TYLENOL AND FLEXERIL WITH GOOD PAIN RELIEF. SHE ALSO HAS A LOT OF ANXIETY AND REQUIRES HYDROXYZINE WHICH HELPS A SMALL AMOUNT. SHE SEES DR. HOFFMAN FOR PULMONOLOGY AND SHES SCHEDULED TO HAVE A CT SCAN DONE AT [facility] ON THE 18 ON OUTPT. SHE GETS UP AND SITS IN RECLINER OR SHE LIKES TO SIT ON THE SIDE OF HER BED. CALL LIGHT IN REACH
[2025-02-13 05:34] LABS: Anion Gap 11.0 mmol/L (3-11); Blood Urea Nitrogen 29.0 mg/dL (8-24); CO2, Blood 26.0 mmol/L (21-32); Calcium, Blood 8.7 mg/dL (8.5-10.1); Chloride, Blood 103.0 mmol/L (98-108); Creatinine, Blood 1.43 mg/dL (0.40-1.00); Glucose, Blood 111.0 mg/dL (70-99); Potassium, Blood 3.3 mmol/L (3.5-5.5); Sodium, Blood 137.0 mmol/L (136-145)
[2025-02-13 07:57] VITALS: BP 98/60
--- NOTE | 2025-02-13 11:48 | NUR ---
DISCHARGE NOTE PATIENT A/OX4, ABLE TO MAKE NEEDS KNOWN. NATTY AZAR COOPERATIVE WITH CARE THOGUHT ANXIOUS THIS MORNING DUE TO HER SPOUSE HAVING PACEMAKER PLACED TODAY. PRN HYDROXYZINE ADMINISTERED PER SEP. HOME O2 EVALUATION COMPLETED BY RT, PATIENT NEEDING 15 LPM WITH AMBULATION, [employer] SPECIALIST AND DR. CALVERT AWARE. PATIENT TOLERATING 10LPM WITH STAND PIVOT TRANSFER. PATIENT EDUCATED THROUGHOULY REGARDING LIMITING PHYSICAL ACITIVITY. PATIENT STATES SHE HAS A WHEELCAHIR AT HOME AND IS ABLE TO LIMIT PHYSICAL ACTIVITY AND AGREEABLE TO THIS PLAN. PATIENT AND FAMILY RE-EDUCATED AT TIME OF DISCHARGE BY BREAK NURSE REGARDING LIMITING HER PHSYICAL ACTIVITY. ALL MEDICATIONS DISCUSSED WITH PATIENT AND FAMILY AND FAXED TO [facility] [address]. PATIENT HAS AN APPOINTMENT WITH [facility] TE[facility] AT [facility] AND IT IS IMPORTANT TO ATTEND THIS APPOINTMENT DESPITE PATIENT'S OXYGEN NEEDS. NIVIA TO DELIVERE CONCENTRATER TO PATIENT'S HOME, AND HAVE BEEN INFORMED OF DISCHARGE PLANS. PATIENT HAS THE OCYGEN TANKS NEEDED TO TRANSPORT HER TO [facility]. PATIENT WITH PULSE OX AT HOME WELL TO MONITOR OXYGEN SATURATION. PATIENT ASSISTED TO FAMILY VEHCILE WITH ALL BELINGINGS IN HAND, NO OTHER CONCERNS AT THIS TIME.
== END 2025-02-13 12:39 | disposition home health service (06) | DRG 291 ==
LOC: ER 22:18 → MEDS 02-09 00:55 → EDPENDDIS 02-12 10:52 → ENPENDDIS 02-12 10:52 → MEDS 02-12 21:41
PROVIDERS: Internal Medicine; Student in an Organized Health Care Education/Training Program; ADMIT Internal Medicine
PROC: 5A0945A Assistance with Respiratory Ventilation, 24-96 Consecutive Hours, High Flow/Velocity Cannula (ICD-10-PCS; principal; 2025-02-09)
DX: I50.33 Acute on chronic diastolic (congestive) heart failure (principal); J96.21 Acute and chronic respiratory failure with hypoxia; B37.0 Candidal stomatitis; J44.1 Chronic obstructive pulmonary disease with (acute) exacerbation; E87.1 Hypo-osmolality and hyponatremia; I50.810 Right heart failure, unspecified; Z99.81 Dependence on supplemental oxygen; I27.20 Pulmonary hypertension, unspecified; E87.6 Hypokalemia; E78.5 Hyperlipidemia, unspecified; F41.9 Anxiety disorder, unspecified; N18.30 Chronic kidney disease, stage 3 unspecified; D63.1 Anemia in chronic kidney disease; R00.0 Tachycardia, unspecified; I27.21 Secondary pulmonary arterial hypertension; Z88.8 Allergy status to other drugs, medicaments and biological substances; Z79.01 Long term (current) use of anticoagulants; Z79.51 Long term (current) use of inhaled steroids; Z79.899 Other long term (current) drug therapy; Z85.3 Personal history of malignant neoplasm of breast; Z86.711 Personal history of pulmonary embolism; Z90.710 Acquired absence of both cervix and uterus; Z90.13 Acquired absence of bilateral breasts and nipples
CPT/HCPCS: 36415; 71045; 80048; 80053; 80069; 82803; 83605; 83735; 83880; 84484; 85025; 85610; 93005; 93010; 94640; 94761; 94762; 96374; 97110; 97112; 97161; 97530; 99285-25; A9270; J1938; J2919; J3480; J7030; J7050; J7512; Q0177

== ENCOUNTER 2025-02-16 06:37 | Emergency (ER) | payer MEDICARE ==
[~2025-02-16] VITALS: Ht 160 cm; Wt 90.7 kg
[~2025-02-16 06:37] MED LIST changes: +ALBU90OI INH; +BREO ELLIPTA 11 EAC1 INH; +DELTASONE20 MG PO; +FURO40 PO; +HYDPAM25 PO; +IPRAT-ALBUT 0.5-3 ML INH; +JARDIANCE10 MG PO; +MICONAZOLE NITR85 GM TOP; +OPSUMIT10 MG PO; +REVATIO20 MG PO; +SILD25T
[2025-02-16] MEDS ORDERED: Albuterol 2.5 MG/3 ML VIAL ONE (06:41)
[2025-02-16] MEDS ORDERED: Albuterol 2.5 MG/3 ML VIAL INH ONE ×2 (06:45→13:55)
[2025-02-16 07:10] LABS: BASOPHILS ABSOLUTE AUTO 0.03 K/mm3 (0.00-0.23); BASOPHILS PERCENT AUTO 0 % (0-2); EOSINOPHILS ABSOLUTE AUTO 0.10 K/mm3 (0.00-0.68); EOSINOPHILS PERCENT AUTO 1 % (0-6); Hematocrit 36.7 % (33.0-51.0); Hemoglobin 11.7 g/dL (11.5-16.0); IMMATURE GRAN ABSOLUTE AUTO 0.06 K/mm3 (0.00-0.10); IMMATURE GRAN PERCENT AUTO 1 % (0-1); LYMPHOCYTES ABSOLUTE AUTO 2.37 K/mm3 (0.84-5.20); LYMPHOCYTES PERCENT AUTO 24 % (21-46); MONOCYTES ABSOLUTE AUTO 0.66 K/mm3 (0.16-1.47); MONOCYTES PERCENT AUTO 7 % (4-13); Mean Corpuscular HGB Conc 31.9 g/dL (31.5-36.5); Mean Corpuscular Volume 94 fL (80-100); NEUTROPHILS ABSOLUTE AUTO 6.75 K/mm3 (1.96-9.15); NEUTROPHILS PERCENT AUTO 68 % (41-73); NRBC ABSOLUTE 0.00 K/mm3 (0.00-0.02); NRBC Auto 0.0 /100 WBC (0.0-0.2); Platelet Count 262 K/mm3 (150-400); RDW Coefficient Variation 15.4 % (11.7-14.2); RDW Standard Deviation 52.8 fL (35.1-46.3)
[2025-02-16 07:20] LABS: Alanine Aminotransfer (ALT/SGP 63.0 U/L (12-78); Albumin, Blood 3.5 g/dL (3.4-5.0); Albumin/Globulin Ratio 0.9 (0.8-1.8); Anion Gap 9.0 mmol/L (3-11); Aspartate Aminotrans (AST/SGOT 51.0 U/L (12-37); Bilirubin, Total 0.6 mg/dL (0.1-1.0); Blood Urea Nitrogen 32.0 mg/dL (8-24); CO2, Blood 29.0 mmol/L (21-32); Calcium, Blood 8.6 mg/dL (8.5-10.1); Chloride, Blood 103.0 mmol/L (98-108); Creatinine, Blood 1.44 mg/dL (0.40-1.00); Globulin, Blood 3.9 g/dL (2.2-4.0); Glucose, Blood 128.0 mg/dL (70-99); Magnesium, Blood 2.4 mg/dL (1.6-2.4); Potassium, Blood 3.4 mmol/L (3.5-5.5); Sodium, Blood 138.0 mmol/L (136-145); Total Protein, Blood 7.4 g/dL (6.4-8.2)
== END 2025-02-16 16:39 | disposition home or self-care (01) ==
LOC: ER 06:37
PROVIDERS: Student in an Organized Health Care Education/Training Program
DX: J44.1 Chronic obstructive pulmonary disease with (acute) exacerbation (principal); J96.21 Acute and chronic respiratory failure with hypoxia; N18.30 Chronic kidney disease, stage 3 unspecified; E87.6 Hypokalemia; E78.5 Hyperlipidemia, unspecified; M54.9 Dorsalgia, unspecified; F41.9 Anxiety disorder, unspecified; Z99.81 Dependence on supplemental oxygen; Z86.79 Personal history of other diseases of the circulatory system; Z86.711 Personal history of pulmonary embolism; Z88.8 Allergy status to other drugs, medicaments and biological substances; Z79.01 Long term (current) use of anticoagulants; Z79.899 Other long term (current) drug therapy
CPT/HCPCS: 71045; 71260; 80053; 83735; 83880; 84484; 85025; 93005; 93010; 94640; 94664; 96374-59; 99285-25; J2919; Q9967